=== PATIENT | female | born 1945 | race Caucasian/White ===

== ENCOUNTER 2017-09-16 19:25 | Observation (INO) | payer MEDICARE, OTHER ==
[2017-09-16] MEDS ORDERED: Ticagrelor 90 MG Tab PO ONE (19:29)
[2017-09-16] MEDS ORDERED: Famotidine 20 MG/2 ML SDV IVPUSH ONE (19:29)
[2017-09-16] MEDS ORDERED: Aspirin 81 MG Tab.Chew CHEW ONE (19:29)
[2017-09-16] MEDS ORDERED: Sodium Chloride 0.9% 10 ML Syringe FLUSH PRN ×2 (19:29→23:32)
--- NOTE | 2017-09-16 19:29 | EDM.PDOC ---
ED HPI GENERAL MEDICAL PROBLEM - General Chief Complaint: Cardiovascular Problem Stated Complaint: BOUNDING HR Time Seen by Provider: 09/16/17 19:28 Source of Information: Reports: Patient, Old Records ([facility] chart/EMR) History Limitations: Reports: No Limitations - History of Present Illness INITIAL COMMENTS - FREE TEXT/NARRATIVE: The patient was brought to the emergency room via private automobile by her for evaluation of a nonspecific "pounding" heart starting at supper at home at about 18:30 hours this evening. She has some nonspecific retrosternal burning with possible mild dyspnea, however denies dysphagia, aspiration, etc. Patient did not take any medications to this point for those symptoms. She does have a known history of significant heart disease as below with last pacemaker check in July. The patient denies any chest pain/pressure, heart flutter, dizziness, orthostasis, orthopnea, diaphoresis, paresthesias, recent decreased exercise tolerance, or any other anginal-type symptoms. No recent history of abdominal pain, heartburn, nausea, diarrhea, melena, gross hematochezia, or any food intolerance, including fatty foods, etc.. The patient also denies any recent fever, cough, wheezing, dyspnea, etc.. Onset: Today, Sudden Onset Date: 09/07/17 Onset Time: 18:30 Duration: Intermittent Location: Reports: Chest. Denies: Head, Face, Neck, Abdomen, Back, Pelvis, Upper Extremity, Left, Upper Extremity, Right, Radiates to Quality: Reports: Same as Previous Episode Severity: Mild Improves with: Reports: None Worsens with: Reports: None Context: Reports: Other (As above) Associated Symptoms: Reports: Chest Pain, Shortness of Breath. 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) (None) - Related Data Allergies Allergy/AdvReac Type Severity Reaction Status Date / Time amoxicillin trihydrate Allergy Unknown Cannot Verified 09/16/17 22:13 [From Augmentin] Remember bupropion HCl Allergy Unknown Cannot Verified 09/16/17 22:13 [From Wellbutrin] Remember cetirizine HCl [From Zyrtec] Allergy Unknown Cannot Verified 09/16/17 22:13 Remember darifenacin hydrobromide Allergy Unknown Cannot Verified 02/27/18 22:13 [From Enablex] Remember fluticasone propionate Allergy Unknown Cannot Verified 09/16/17 22:13 [From Flonase] Remember lovastatin Allergy Unknown Diarrhea Verified 09/16/17 22:13 metoprolol tartrate Allergy Unknown Diarrhea Verified 09/16/17 22:13 [From Lopressor] paroxetine HCl [From Paxil] Allergy Unknown Cannot Verified 09/16/17 22:13 Remember potassium clavulanate Allergy Unknown Cannot Verified 09/16/17 22:13 [From Augmentin] Remember sertraline HCl [From Zoloft] Allergy Cannot Verified 09/16/17 22:13 Remember simvastatin [From Zocor] Allergy Cannot Verified 09/16/17 22:13 Remember Sulfa (Sulfonamide Allergy Itching Verified 09/16/17 22:13 Antibiotics) venlafaxine HCl Allergy Anxiety Verified 09/16/17 22:13 [From Effexor] verapamil HCl [From Verelan] Allergy Cannot Verified 09/16/17 22:13 Remember arginine Allergy Cannot Uncoded 09/16/17 22:13 Remember Home Meds: Home Meds ALPRAZolam [Xanax] 2 mg PO BEDTIME PRN 03/11/14 [History] Azelastine HCl 2 spray NASBOTH BID PRN 03/11/14 [History] Calcium Carb & Citrate/Vit D3 [Citracal + D ER] 1 tab PO BEDTIME 03/11/14 [ History] Citalopram [Citalopram HBr] 20 mg PO DAILY 03/11/14 [History] Ferrous Sulfate 325 mg PO DAILY 03/11/14 [History] Lutein/Minerals/Vit A,C & E [Ocuvite] 1 tab PO DAILY 03/11/14 [History] Multivitamin [Daily Multiple Vitamin] 1 tab PO DAILY 03/11/14 [History] Omeprazole 20 mg PO DAILY 03/11/14 [History] Rosuvastatin [Crestor] 20 mg PO BEDTIME 03/11/14 [History] Ubidecarenone [Co Q-10] 100 mg PO BID 03/11/14 [History] traMADol Hcl/Acetaminophen [Ultracet Tablet] 1 tab PO DAILY PRN 03/11/14 [ History] Cyanocobalamin (Vitamin B12) [Vitamin B12] 1,000 mcg IJ Q30D 04/19/14 [History] Ketotifen Fumarate [Zaditor] 1 drop EYEBOTH BID PRN 04/19/14 [History] Aspirin [Halfprin] 81 mg PO BEDTIME 09/16/17 [History] Carvedilol 3.125 mg PO BID 09/16/17 [History] cycloSPORINE [Restasis] 1 drop EYEBOTH BID 09/16/17 [History] Past Medical History HEENT History: Reports: Allergic Rhinitis, Hard of Hearing, Impaired Vision, Macular Degeneration, Other (See Below). Denies: Cataract, Glaucoma, Retinal Detachment Other HEENT History: She wears glasses. 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 Dry eye syndrome Cardiovascular History: Reports: Afib, Arrhythmia, Automatic Implantable Cardioverter Defibrillators, Bypass, CAD, Cardiomyopathy, Heart Failure, Heart Murmur, High Cholesterol, Hypertension, [place], Pacemaker, PTCA, Stents, Other (See Below). Denies: Aneurysm, Blood Clots/VTE/DVT, PVD, Syncope Other Cardiovascular History: PVCs, borderline incomplete bifascicular bundle branch block, PACs, first-degree AV block, and history of atrial fibrillation. Ischemic cardiomyopathy and large anterior wall acute KY on 06/24/91 with this post PTCA/stent and CABG as below. Mild left atrial enlargement and aortic valve insufficiency by echocardiogram as below Respiratory History: Reports: Asthma, COPD, Intubation, Previous, Sleep Apnea, Other (See Below). Denies: Bronchitis, Recurrent, Intubation, Difficult, PE, Pneumothorax, Pulmonary Fibrosis, TB Other Respiratory History: History of sleep apnea with patient not able to tolerate CPAP Gastrointestinal History: Reports: Diverticulosis, Fecal Incontinence, Gastritis , GERD, GI Bleed, Hiatal Hernia, PUD, Other (See Below). Denies: Bowel Obstruction, Celiac Disease, Cholelithiasis, Chronic Constipation, Chronic Diarrhea, Colon Polyp, Hepatitis, Inflammatory Bowel Disease, Irritable Bowel Syndrome, Jaundice, Pancreatitis Other Gastrointestinal History: Moderately large hiatal hernia by CT scan. Possible upper GI bleed Genitourinary History: Reports: Chronic Renal Insuffiency, Urinary Incontinence , Other (See Below). Denies: Acute Renal Failure, Dialysis, Renal Calculus, STD , UTI, Recurrent Other Genitourinary History: History of both stress and urinary urge incontinence. 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 Denies: Endometriosis : 4 Para: 3 ( with first otherwise with no other problems during pregnancies or deliveries) LMP (Approximate): Menopausal Other OB/BYN History: Menopause in her early 50s. Benign ovarian cysts and vaginal polyps Musculoskeletal History: Reports: Arthritis, Back Pain, Chronic, Fracture, Gout , Neck Pain, Chronic, Osteoarthritis, Osteoporosis, Other (See Below). Denies: Amputation, Fibromyalgia, RA, SLE Other Musculoskeletal History: Neck fracture and 2 vertebral fracture in T5 and T11 secondary to severe horse injury on 03/27/13. Left thumb fracture at age 17. Additional T1 and T2 fractures in the past. Hyperuricemia without history of gout attacks Neurological History: Reports: Concussion, Headaches, Chronic, Head Trauma, Migraines, Neuropathy, Peripheral, Other (See Below). Denies: Alzheimers Disease, Cerebral Aneurysms, CVA, MS, Neuropathy, Diabetic, Parkinson's, Seizure , TIA Other Neuro History: History of head concussion secondary to force injury as above in 2012 Psychiatric History: Reports: Anxiety, Depression. Denies: Abuse, Victim of, ADD, ADHD, Addiction, Psych Hospitalization(s), PTSD, Suicide Attempt, Suicidal Ideation Endocrine/Metabolic History: Reports: Other (See Below). 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 Additional blood transfusion on 08/03/12 secondary to symptomatic anemia. 3 units in 1995 secondary to tubal Immunologic History: Denies: AIDS, HIV, SLE Oncologic (Cancer) History: Reports: None. Denies: Basal Cell Carcinoma, Breast , Cervix, Colon, Leukemia, Lymphoma, Malignant Melanoma, Non-Hodgkin's Lymphoma , Ovarian, Squamous Cell Carcinoma, Uterine Dermatologic History: Reports: None. Denies: Eczema, Psoriasis - Infectious Disease History Infectious Disease History: Reports: Chicken Pox, Measles, Mumps, Pertussis ( Whooping Cough). Denies: C-Difficile, Meningitis, Mononucleosis, MRSA, Rheumatic Fever, Rubella, Scarlet Fever, Shingles, TB, VRE - Past Surgical History Head Surgeries/Procedures: Reports: None HEENT Surgical History: Reports: LASIK, Naso-Sinus Surgery, Oral Surgery, Other (See Below). Denies: Adenoidectomy, Cataract Surgery, Eye Surgery, Laser Surgery, Myringotomy w Tube(s), Tonsillectomy Other HEENT Surgeries/Procedures: Multiple teeth extractions. Septoplasty with bilateral middle and inferior turbinate trimming on 09/18/01. LASIK Cardiovascular Surgical History: Reports: AICD, Coronary Artery Bypass, Coronary Artery Stent, Pacer, Percutaneous Transluminal Angioplasty, Other (See Below). Denies: Aneurysm Other Cardiovascular Surgeries/Procedures: PTCA/stent on 06/24/91. CABG 1 of the LAD on 03/29/14. AICDpacemaker placement in 2009 Respiratory Surgical History: Reports: None. Denies: Lung Biopsies, Thoracentesis GI Surgical History: Reports: Colonoscopy, EGD, Other (See Below). Denies: Appendectomy, Cholecystectomy, Hernia, Abdominal, Hernia, Inguinal, Hernia Repair/Other, Polypectomy Other GI Surgeries/Procedures: Last EGD and colonoscopy in 2013 with previous EGD and colonoscopy on 11/14/05 Female Surgical History: Reports: Section, D&C, Salpingo- Oophorectomy, Other (See Below). Denies: Breast Biopsy, Hysterectomy, Tubal Ligation Other Female Surgeries/Procedures: on 12/14/69. Left sided salpingo- oophorectomy secondary to tubal in March 1966. D&Cs 2 secondary to dysfunctional uterine bleeding Endocrine Surgical History: Reports: None. Denies: Thyroid Biopsy Neurological Surgical History: Reports: None. Denies: C-Spine, Discectomy, Laminectomy, Lumbar Spine, Sacral Spine, Spinal Fusion Musculoskeletal Surgical History: Denies: Amputation, Arthroscopic Knee, Arthroscopic Procedure, Carpal Tunnel, Ganglion Cyst, Joint Replacement, ORIF, Shoulder Surgery Oncologic Surgical History: Reports: None Dermatological Surgical History: Reports: None - Past Imaging History Past Imaging History: Reports: Angiography (Heart Catheterization in March), Cardiac Echo (Last echocardiogram on 11/26/16 with ejection fraction of 35-40% with otherwise findings as above with similar findings on previous echocardiogram on 03/25/14), Carotid US (Last on 09/27/14 previous evaluation on ), CAT Scan (CTA of the chest on 03/12/14. CT of the chest on 03/27/13. CT of the lumbar spine on 06/25/10), DEXA Scan (12/11/12), Mammogram (Last mammogram in 2017), Stress Testing (Positive Dobutamine Cardiolite stress test on 03/17/14 with ejection fraction of 32% and subsequent CABG as above. Level cardiac stress test on 05/03/14), Ultrasound (Renal ultrasound on 06/27/10) Social & Family History - Family History HEENT: Reports: Macular Degeneration, Other (See Below). Denies: Glaucoma, Retinal Detachment Other HEENT Family History: Mother with macular degeneration Cardiac: Reports: Bypass, CAD, Cardiomyopathy, Heart Failure, High Cholesterol, Hypertension, [place], Stent, Other (See Below). Denies: Afib, Aneurysm, Arrhythmia , Blood Clots/VTE/DVT, PVD/COD, Syncope Other Cardiac Family History: Mother with history of CHF and pacemaker at age 86 with fatal CHF and kidney failure at age 88. Mother with KY at age 58 with father having an KY in his 60s with three-vessel CABG. 2 maternal aunts with fatal MIs in their 60s. 2 paternal uncles with fatal MIs with brother having an KY in his 30s. Brother with PTCA in his 50s. Cousin with fatal KY at age 48. Maternal uncle with fatal KY at age 73. Brother with KY and three-vessel CABG at age 48. Hyperlipidemia in parents. Hypertension in mother and brother Respiratory: Reports: None. Denies: Asthma, COPD, PE, Pneumothorax, Sleep Apnea GI: Reports: Cholelithiasis, PUD, Other (See Below). Denies: Celiac Disease, Colon Polyps, GERD, GI bleed, Hepatitis, Inflammatory Bowel Disease, Irritable Bowel Syndrome, Pancreatitis Other GI Family History: Mother and paternal uncle with cholelithiasis. Paternal uncle with peptic ulcer disease with history of abdominal gunshot injury : Reports: Dialysis, Renal Disease/Insufficiency, Other (See Below). Denies: Renal Calculus Other Family History: Father with fatal CHF and/or kidney failure at age 88 as above. Paternal uncle required dialysis OBGYN: Reports: None. Denies: Endometriosis, Recurrent Spontaneous Musculoskeletal: Reports: None. Denies: Gout, RA, SLE Neurological: Reports: CVA, TIA, Other (See Below). Denies: Alzheimers Disease , Cerebral Aneurysms, Dementia, MS, Parkinson's, Seizure Other Neurological Family History: Mother with CVA at age 79 and additional history of multiple TIAs Psychiatric: Reports: Anxiety, Depression, Psych Hospitalization(s), PTSD, Other (See Below). Denies: Abuse, Victim of, ADD, ADHD, Suicide Attempt Other Psychiatric Family History: Father with anxiety depression disorder and paranoid schizophrenia which did require psychiatric hospitalization. Brother with history of PTSD secondary to service. Endocrine/Metabolic: Reports: Diabetes, type II, Hypothyroidism, Other (See Below). Denies: Diabetes, Type I, Diabetes Mellitus, Type 3c, IDDM Other Endocrine/Metabolic Family History: Paternal aunt with fatal diabetes mellitus in her 60s. 2 maternal uncles, paternal grandmother, and paternal uncle with AODM. Hypothyroidism in sister and mother. Hematologic: Reports: None. Denies: Anemia, Transfusion Reaction Immunologic: Reports: None. Denies: AIDS, HIV, SLE Dermatologic: Reports: None. Denies: Eczema, Psoriasis Oncologic: Reports: Colon, Prostate, Other (See Below). Denies: Breast, Hodgkin 's Lymphoma, Leukemia, Lymphoma, Metastatic, Non-Hodgkin's Lymphoma, Ovarian, Skin, Uterine Other Oncologic Family History: Maternal aunt with fatal colon cancer at age 79. Father with leukemia. Brother with prostate cancer - Tobacco Use Smoking Status *Q: Former Smoker Tobacco Use Within Last Twelve Months: No Years of Tobacco use: 29 Packs/Tins Daily: 2 (smoking use of tobacco use since 1990 with maximum use of 2 1/2 packs per day) Used Tobacco, but Quit: Yes Smoking Cessation Information Provided To Patient: No Second Hand Smoke Exposure: No Second Hand Smoke Education Provided: No - Caffeine Use Caffeine Use: Reports: Coffee (2 Cups per day), Soda (1 soda per month). Denies : Energy Drinks, Tea - Alcohol Use Alcohol Use History: Yes Days Per Week of Alcohol Use: 3 (No previous DWIs, problems with alcohol abuse, etc.) Number of Drinks Per Day: 1 (Usually beer or wine) Total Drinks Per Week: 3 Alcohol Use in Last Twelve Months: Yes Alcohol Use Frequency: Socially - Recreational Drug Use Recreational Drug Use: No Drug Use in Last 12 Months: No Recreational Drug Type: Denies: Amphetamines (Speed), Cocaine, Heroin, Inhalants (Glues, Solvents, Aerosols), LSD (Acid), Marijuana/Hashish, Methamphetamine, Morphine, Oxycodone - Living Situation & Occupation Living situation: Reports: (1965) 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 ED EXAM, GENERAL - Physical Exam Exam: See Below Exam Limited By: No Limitations General Appearance: Alert, WD/WN, No Apparent Distress, Anxious (Mild) Eye Exam: Bilateral Eye: EOMI, Normal Inspection (No nystagmus. Patient wearing glasses), PERRL Ears: Normal External Exam, Normal Canal, Normal TMs, Hearing Loss (Presbycusis borderline) Nose: Normal Inspection, Normal Mucosa, No Blood Throat/Mouth: Normal Inspection, Normal Lips, Normal Teeth (Multiple missing teeth), Normal Gums, Normal Oropharynx, Normal Voice, No Airway Compromise. No : Dysphagia, Perioral Cyanosis Head: Atraumatic, Normocephalic. No: Facial Swelling, Facial Tenderness, Sinus Tenderness Neck: Supple, Non-Tender, Full Range of Motion, Carotid Bruit (Bilateral carotid bruits). No: Lymphadenopathy (L), Lymphadenopathy (R), Thyromegaly Respiratory/Chest: No Respiratory Distress, Lungs Clear, Normal Breath Sounds, No Accessory Muscle Use, Chest Non-Tender. No: Pleural Rub, Retractions Cardiovascular: Normal Peripheral Pulses, Regular Rate, Rhythm, No Edema, No Gallop, No JVD, No Murmur, No Rub. No: Gallop/S3, Gallop/S4, Friction Rub Peripheral Pulses: 2+: Radial (L), Radial (R), Dorsalis Pedis (L), Dorsalis Pedis (R) GI/Abdominal: Normal Bowel Sounds, Soft, Non-Tender, No Organomegaly, No Distention, No Abnormal Bruit, No Mass, Pelvis Stable. No: Guarding (Female) Exam: Deferred Rectal (Female) Exam: Deferred Back Exam: Normal Inspection, Full Range of Motion. No: CVA Tenderness (L), CVA Tenderness (R), Muscle Spasm Extremities: Normal Inspection, Normal Range of Motion, Non-Tender, No Pedal Edema, Normal Capillary Refill. No: Hero's Sign Neurological: Alert, Oriented, CN II-XII Intact, Normal Cognition, Normal Gait, Normal Reflexes (Negative Babinski's), No Motor/Sensory Deficits Psychiatric: Anxious (Mild). No: Depressed Mood Skin Exam: Warm, Dry, Intact, Normal Color, No Rash. No: Diaphoretic, Ecchymosis, Petechiae, Wound/Incision EKG INTERPRETATION EKG Date: 09/16/17 Time: 19:45 Rhythm: NSR Rate (Beats/Min): 62 [place]: Normal (Left cardiac axis) P-Wave: Present (Mild Diffuse biphasic P waves with extreme poor R-wave progression in the anterior leads) QRS: Other (QRS interval of 0.12 seconds representing a complete bifascicular bundle-branch block) ST-T: Other (Stable T-wave inversion in leads V1 and V2) QT: Normal MA/PQ Interval: 0.20 seconds representing a borderline first-degree AV block Comparison: No Change (03/17/14) EKG Interpretation Comments: 1. Stable anterior wall cardiac ischemia 2. Borderline First-degree AV block 3. Complete bifascicular bundle-branch block Course - Vital Signs Last Recorded V/S: Last Vital Signs Temp 36.8 C 09/17/17 12:00 Pulse 47 L 09/17/17 12:00 Resp 18 09/17/17 12:00 BP 98/48 L 09/17/17 12:00 Pulse Ox 97 09/17/17 12:00 - Orders/Labs/Meds Labs: Laboratory Tests 09/16/17 09/16/17 09/16/17 Range/Units 19:50 19:58 19:58 WBC 6.5 (4.0-10.2) K/uL RBC 4.01 (3.77-5.09) M/uL Hgb 12.4 D (11.7-15.5) g/dL Hct 38.1 (34.0-46.0) % MCV 95.0 D (84.0-98.0) fL MCH 30.9 (28.2-33.3) pg MCHC 32.5 (31.7-36.0) g/dL RDW 14.8 H (11.2-14.1) % Plt Count 222 (150-350) K/uL Neut % (Auto) 59.5 (45.0-80.0) % Lymph % (Auto) 25.6 (10.0-50.0) % Bates % (Auto) 10.3 (2.0-14.0) % Eos % (Auto) 4.3 (0.0-5.0) % Baso % (Auto) 0.3 (0.0-2.0) % Neut # (Auto) 3.86 (1.40-7.00) K/uL Lymph # (Auto) 1.66 (0.50-3.50) K/uL Bates # (Auto) 0.67 (0.00-1.00) K/uL Eos # (Auto) 0.28 (0.00-0.50) K/uL Baso # (Auto) 0.02 (0.00-0.20) K/uL PT 10.2 (9.8-11.7) SEC INR 1.0 APTT 26.4 (22.1-29.8) SEC D-Dimer, Quantitative (0-400) ng/mL Sodium (136-145) mmol/L Potassium (3.5-5.1) mmol/L Chloride (98-107) mmol/L Carbon Dioxide (21.0-32.0) mmol/L BUN (7-18) mg/dL Creatinine (0.51-1.17) mg/dL Est Cr Clr Drug Dosing mL/min Estimated GFR (MDRD) mL/min Glucose (74-106) mg/dL Lactic Acid 2.6 H (0.4-2.0) mmol/L Uric Acid (2.6-7.2) mg/dL Calcium (8.5-10.1) mg/dL Magnesium (1.8-2.4) mg/dL Total Bilirubin (0.2-1.0) mg/dL AST (15-37) U/L ALT (12-78) U/L Alkaline Phosphatase (46-116) IU/L Creatine Kinase (26-308) U/L Creatine Kinase Index (0.0-2.5) % CK-MB (CK-2) (0.00-3.60) ng/mL Troponin I (0.000-0.056) ng/mL NT-Pro-B Natriuret Pep (0-125) pg/mL Total Protein (6.4-8.2) g/dL Albumin (3.4-5.0) g/dL TSH, Ultra Sensitive (0.358-3.740) mIU/mL 09/16/17 09/16/17 Range/Units 19:58 19:58 WBC (4.0-10.2) K/uL RBC (3.77-5.09) M/uL Hgb (11.7-15.5) g/dL Hct (34.0-46.0) % MCV (84.0-98.0) fL MCH (28.2-33.3) pg MCHC (31.7-36.0) g/dL RDW (11.2-14.1) % Plt Count (150-350) K/uL Neut % (Auto) (45.0-80.0) % Lymph % (Auto) (10.0-50.0) % Bates % (Auto) (2.0-14.0) % Eos % (Auto) (0.0-5.0) % Baso % (Auto) (0.0-2.0) % Neut # (Auto) (1.40-7.00) K/uL Lymph # (Auto) (0.50-3.50) K/uL Bates # (Auto) (0.00-1.00) K/uL Eos # (Auto) (0.00-0.50) K/uL Baso # (Auto) (0.00-0.20) K/uL PT (9.8-11.7) SEC INR APTT (22.1-29.8) SEC D-Dimer, Quantitative 250 (0-400) ng/mL Sodium 141 (136-145) mmol/L Potassium 3.8 (3.5-5.1) mmol/L Chloride 105 (98-107) mmol/L Carbon Dioxide 25.6 (21.0-32.0) mmol/L BUN 17 (7-18) mg/dL Creatinine 0.92 (0.51-1.17) mg/dL Est Cr Clr Drug Dosing 42.32 mL/min Estimated GFR (MDRD) > 60 mL/min Glucose 133 H (74-106) mg/dL Lactic Acid (0.4-2.0) mmol/L Uric Acid 5.8 (2.6-7.2) mg/dL Calcium 8.8 (8.5-10.1) mg/dL Magnesium 1.9 (1.8-2.4) mg/dL Total Bilirubin 0.5 (0.2-1.0) mg/dL AST 18 (15-37) U/L ALT 18 (12-78) U/L Alkaline Phosphatase 58 (46-116) IU/L Creatine Kinase 87 (26-308) U/L Creatine Kinase Index 1.6 (0.0-2.5) % CK-MB (CK-2) 1.40 (0.00-3.60) ng/mL Troponin I 0.003 (0.000-0.056) ng/mL NT-Pro-B Natriuret Pep 498 H (0-125) pg/mL Total Protein 7.4 (6.4-8.2) g/dL Albumin 3.5 (3.4-5.0) g/dL TSH, Ultra Sensitive 3.400 (0.358-3.740) mIU/mL Meds: Medications Discontinued Medications Generic Name Dose Route Start Last Admin Trade Name Freq PRN Reason Stop Dose Admin Acetaminophen 650 mg 09/16/17 23:32 Tylenol PO Q4H PRN Pain Alprazolam 2 mg 09/16/17 23:30 09/16/17 23:56 Xanax PO 2 mg BEDTIME PRN Administration Anxiety Aspirin 324 mg 09/16/17 19:29 09/16/17 19:54 Aspirin CHEW 09/16/17 19:30 324 mg ONETIME ONE Administration Aspirin 81 mg 09/17/17 20:00 Halfprin PO BEDTIME [facility] Carvedilol 3.125 mg 09/17/17 08:00 09/17/17 08:40 Coreg PO 3.125 mg BID RONALD Administration Citalopram Hydrobromide 20 mg 09/17/17 08:00 09/17/17 08:40 Celexa PO 20 mg DAILY [facility] Administration Coenzyme Q10 100 mg 09/17/17 08:00 09/17/17 08:39 Coenzyme Q10 PO 100 mg BID RONALD Administration Enoxaparin Sodium 40 mg 09/16/17 23:45 09/16/17 23:57 Lovenox SUBCUT 40 mg Q24H RONALD Administration Famotidine 40 mg 09/16/17 19:29 09/16/17 19:54 Pepcid IVPUSH 09/16/17 19:30 40 mg ONETIME ONE Administration Ferrous Sulfate 325 mg 09/17/17 08:00 09/17/17 08:39 Ferrous Sulfate PO 325 mg DAILY RONALD Administration Ketotifen Fumarate 0 ml 09/16/17 23:30 Ketotifen 0.025% Ophth Soln EYEBOTH BID PRN Dry Eyes Non-Formulary Medication 2 spray 09/16/17 23:30 Azelastine Hcl [Azelastine Hcl] NASBOTH BID PRN Dry Eyes Cyclosporine [ 1 drop 09/17/17 08:00 09/17/17 08:39 Restasis] 0.05% EYEBOTH 1 drop Ophth EmulsionOwn BID RONALD Administration Med Rosuvastatin Calcium 20 mg 09/17/17 20:00 Crestor PO BEDTIME RONALD Rosuvastatin Calcium 20 mg 09/16/17 23:39 09/16/17 23:57 Crestor PO 20 mg BEDTIME RONALD Administration Sodium Chloride 10 ml 09/16/17 19:29 09/16/17 19:54 Saline Flush FLUSH 10 ml ASDIRECTED PRN Administration Keep Vein Open Sodium Chloride 10 ml 09/16/17 23:32 Saline Flush FLUSH Q12HR PRN Keep Vein Open Ticagrelor 180 mg 09/16/17 19:29 09/16/17 19:54 Brilinta PO 09/16/17 19:30 180 mg ONETIME ONE Administration - Radiology Interpretation Free Text/Narrative:: manager monitoring shows normal sinus rhythm in the 60s to 70s with occasional bradycardia in the 50s with recurrent episodes of moderate bradycardia with lowest heart rate of 45 and initiation of pacemaker when her heart rate is in the 40s. Occasional PVCs noted. Chest x-ray, portable, shows status post median sternotomy with pacemaker and leads in appropriate position. Prominence of the proximal aortic arch. Moderate COPD changes with no evidence of significant pulmonary infiltrates, pneumothorax , etc. Mild to moderate cardiomegaly with no CHF. Departure - Departure Time of Disposition: 23:00 Disposition: Refer to Observation Reason for Transfer *Q: Other (Not indicated) Condition: Good Clinical Impression: COPD, Moderate chronic obstructive pulmonary disease, Coronary artery disease, Hypertension, Hyperlipidemia, Osteoarthritis, Peptic reflux disease, Elevated lactic acid level, CHF (congestive heart failure) - Problem List & Annotations (1) Coronary artery disease SNOMED Code(s): 64047121 Code(s): I25.10 - ATHSCL HEART DISEASE OF [place] CORONARY ARTERY W/O ANG PCTRS Status: Acute Priority: High Annotation/Comment:: Atypical anginal complaints vs GI/stricture. Serial labs unremarkable. Did complain of pounding heart/fast heart rate sensation once last night. Qualifiers: Coronary Disease-Associated Artery/Lesion type: bypass graft [place] vs. transplanted heart: [place] heart Associated angina: with stable angina Qualified Code(s): I25.708 - Atherosclerosis of coronary artery bypass graft(s) , unspecified, with other forms of angina pectoris (2) CHF (congestive heart failure) SNOMED Code(s): 72603208 Code(s): I50.9 - HEART FAILURE, UNSPECIFIED Status: Acute Priority: High Annotation/Comment:: Mild BNP elevation but no clinical evidence of significant CHF at this time. Cardiology consultation as above with consideration of repeat echocardiogram. Delay in initiation of Lasix therapy for now with possible CHF secondary to her intermittent bradycardia. Her previous lisinopril has been discontinued by her providers. Recommend increased pacemaker rate as above. Qualifiers: Heart failure type: systolic Heart failure chronicity: acute on chronic Qualified Code(s): I50.23 - Acute on chronic systolic (congestive) heart failure (3) COPD, Moderate chronic obstructive pulmonary disease SNOMED Code(s): 586589340 Code(s): J44.9 - CHRONIC OBSTRUCTIVE PULMONARY DISEASE, UNSPECIFIED Status : Chronic Priority: Medium Annotation/Comment:: Stable by history with no recent fever or bronchitic type symptoms (4) Hyperlipidemia SNOMED Code(s): 27899558 Code(s): E78.5 - HYPERLIPIDEMIA, UNSPECIFIED Status: Chronic Priority: Medium Annotation/Comment:: Currently on statin therapy. Lipid panel and glycosylated hemoglobin in the a.m. Qualifiers: Hyperlipidemia type: unspecified Qualified Code(s): E78.5 - Hyperlipidemia , unspecified (5) Hypertension SNOMED Code(s): 97692145 Code(s): I10 - ESSENTIAL (PRIMARY) HYPERTENSION Status: Chronic Priority : Medium Annotation/Comment:: Blood Pressures stable in the emergency room Qualifiers: Hypertension type: essential hypertension Qualified Code(s): I10 - Essential (primary) hypertension (6) Osteoarthritis SNOMED Code(s): 591868278 Code(s): M19.90 - UNSPECIFIED OSTEOARTHRITIS, UNSPECIFIED SITE Status: Chronic Priority: Medium Annotation/Comment:: Stable by patient history with history of hyperuricemia but no previous gout attacks Qualifiers: Osteoarthritis location: multiple joints Osteoarthritis type: primary Qualified Code(s): M15.0 - Primary generalized (osteo)arthritis (7) Peptic reflux disease SNOMED Code(s): 12284972 Code(s): K21.9 - GASTRO-ESOPHAGEAL REFLUX DISEASE WITHOUT ESOPHAGITIS Status: Chronic Priority: Medium Annotation/Comment:: Stable by history with high-dose IV Pepcid given in the emergency room (8) Elevated lactic acid level SNOMED Code(s): 7699786 Code(s): R79.89 - OTHER SPECIFIED ABNORMAL FINDINGS OF BLOOD CHEMISTRY Status: Acute Priority: Medium Onset Date: 09/16/17 Annotation/Comment:: Normal level this morning. - Problem List Review Problem List Initiated/Reviewed/Updated: Yes - Assessment/Plan Admission H&P: Please use this note as an admission H&P Assessment:: As above Plan: As above. Extensive precautions were given to the patient and her , who are in agreement with the treatment plan. The patient's condition is stable enough for observation status and general supervision. Brenda walters physician assumes care in the a.m.
[2017-09-16 20:29] LABS: CHLORIDE,CL 105 mmol/L (98-107); SODIUM,NA 141 mmol/L (136-145)
[2017-09-16] MEDS ORDERED: Ketotifen 0.025% Ophth Soln 5 ML Bottle EYEBOTH PRN (23:30)
[2017-09-16] MEDS ORDERED: ALPRAZolam 1 MG Tab PO PRN (23:30)
[2017-09-16] MEDS ORDERED: Non-Formulary Medication 1 Each (Azelastine Hcl [Azelastine Hcl] 2 SPRAY) NASBOTH PRN (23:30)
[2017-09-16] MEDS ORDERED: Acetaminophen 325 MG Tab PO PRN (23:32)
[2017-09-16] MEDS ORDERED: Rosuvastatin 10 MG Tab PO SCH (23:39)
[2017-09-16] MEDS ORDERED: Enoxaparin 40 MG/0.4 ML Syringe SUBCUT SCH (23:45)
[2017-09-17] MEDS ORDERED: Carvedilol 6.25 MG Tab PO SCH (08:00)
[2017-09-17] MEDS ORDERED: CYCLOSPORINE 0.05% EYEBOTH SCH (08:00)
[2017-09-17] MEDS ORDERED: Ferrous Sulfate 325 MG Tab PO SCH (08:00)
[2017-09-17] MEDS ORDERED: Citalopram 20 MG Tab PO SCH (08:00)
[2017-09-17 08:20] LABS: CHLORIDE,CL 106 mmol/L (98-107); SODIUM,NA 143 mmol/L (136-145)
[2017-09-17 12:18] VITALS: BP 98/48
--- NOTE | 2017-09-17 12:18 | PCM.DCSUM1 ---
Discharge Summary - Hospital Course Free Text/Narrative:: Patient admitted overnight for telemetry and serial troponins after presenting to ER last night due to epigastric discomfort. - Discharge Data Discharge Date: 09/17/17 Discharge Disposition: DC/Tfer to Acute Hospital 02 Condition: Good - Discharge Diagnosis/Problem(s) (1) Bradycardia SNOMED Code(s): 00517585 ICD Code: R00.1 - BRADYCARDIA, UNSPECIFIED Status: Acute Priority: High Current Visit: Yes Problem Details: Patient noted to have bradycardia. Does have demand pacemaker that is noted to fire only once patient is in the 40s. Uncertain is this is the set rate or if pacemaker is misbehaving. Patient complains of chronic fatigue. Subjective SOB last night improved with O2. Also noted to be hypotensive with readings in 90s/40s at times. Patient will be transferred to [facility] for further evaluation by hospitalist and Cardiology. (2) Dysphagia SNOMED Code(s): 22684289 ICD Code: R13.10 - DYSPHAGIA, UNSPECIFIED Status: Acute Priority: Medium Current Visit: Yes Problem Details: Patient complains of sensation of food getting stuck in lower esophagus. Unable to swallow water last evening when this happened. No history of stricture in past per patient but does have PUD/ GERD. Qualifiers: Dysphagia type: esophageal phase Qualified Code(s): R13.10 - Dysphagia, unspecified (3) COPD, Moderate chronic obstructive pulmonary disease SNOMED Code(s): 102779739 ICD Code: J44.9 - CHRONIC OBSTRUCTIVE PULMONARY DISEASE, UNSPECIFIED Status : Chronic Priority: Medium Current Visit: Yes Problem Details: Stable by history with no recent fever or bronchitic type symptoms (4) Hypertension SNOMED Code(s): 53434671 ICD Code: I10 - ESSENTIAL (PRIMARY) HYPERTENSION Status: Chronic Priority : Medium Current Visit: Yes Problem Details: Blood Pressures stable in the emergency room Qualifiers: Hypertension type: essential hypertension Qualified Code(s): I10 - Essential (primary) hypertension (5) Coronary artery disease SNOMED Code(s): 60237976 ICD Code: I25.10 - ATHSCL HEART DISEASE OF [place] CORONARY ARTERY W/O ANG PCTRS Status: Acute Priority: High Current Visit: Yes Problem Details: Atypical anginal complaints vs GI/stricture. Serial labs unremarkable. Did complain of pounding heart/fast heart rate sensation once last night. Qualifiers: Coronary Disease-Associated Artery/Lesion type: bypass graft [place] vs. transplanted heart: [place] heart Associated angina: with stable angina Qualified Code(s): I25.708 - Atherosclerosis of coronary artery bypass graft(s) , unspecified, with other forms of angina pectoris (6) Hyperlipidemia SNOMED Code(s): 60453845 ICD Code: E78.5 - HYPERLIPIDEMIA, UNSPECIFIED Status: Chronic Priority: Medium Current Visit: Yes Problem Details: Currently on statin therapy. Lipid panel and glycosylated hemoglobin in the a.m. Qualifiers: Hyperlipidemia type: unspecified Qualified Code(s): E78.5 - Hyperlipidemia , unspecified (7) Osteoarthritis SNOMED Code(s): 472418720 ICD Code: M19.90 - UNSPECIFIED OSTEOARTHRITIS, UNSPECIFIED SITE Status: Chronic Priority: Medium Current Visit: Yes Problem Details: Stable by patient history with history of hyperuricemia but no previous gout attacks Qualifiers: Osteoarthritis location: multiple joints Osteoarthritis type: primary Qualified Code(s): M15.0 - Primary generalized (osteo)arthritis (8) Peptic reflux disease SNOMED Code(s): 86753478 ICD Code: K21.9 - GASTRO-ESOPHAGEAL REFLUX DISEASE WITHOUT ESOPHAGITIS Status: Chronic Priority: Medium Current Visit: Yes Problem Details: Stable by history with high-dose IV Pepcid given in the emergency room (9) Elevated lactic acid level SNOMED Code(s): 8865165 ICD Code: R79.89 - OTHER SPECIFIED ABNORMAL FINDINGS OF BLOOD CHEMISTRY Status: Acute Priority: Medium Current Visit: Yes Onset Date: 09/16/17 Problem Details: Normal level this morning. (10) CHF (congestive heart failure) SNOMED Code(s): 94105377 ICD Code: I50.9 - HEART FAILURE, UNSPECIFIED Status: Acute Priority: High Current Visit: Yes Problem Details: Mild BNP elevation but no clinical evidence of significant CHF at this time. Cardiology consultation as above with consideration of repeat echocardiogram. Delay in initiation of Lasix therapy for now with possible CHF secondary to her intermittent bradycardia. Her previous lisinopril has been discontinued by her providers. Recommend increased pacemaker rate as above. Qualifiers: Heart failure type: systolic Heart failure chronicity: acute on chronic Qualified Code(s): I50.23 - Acute on chronic systolic (congestive) heart failure - Patient Summary/Data Hospital Course: No tachycardia observed during stay, however bradycardia persisted with demand pacemaker firing only when rate became quite low. Trop/CKMB negative. ProBNP slightly elevated. DDimer normal. Call placed to [facility] to discuss the bradycardia, pacemaker, hypotension, and dysphagia. Patient accepted in transfer by for continued workup of these complaints. Will be able to be seen by Cardiology as well as GI. - Discharge Plan Home Medications: Home Meds ALPRAZolam [Xanax] 2 mg PO BEDTIME PRN 03/11/14 [History] Azelastine HCl 2 spray NASBOTH BID PRN 03/11/14 [History] Calcium Carb & Citrate/Vit D3 [Citracal + D ER] 1 tab PO BEDTIME 03/11/14 [ History] Citalopram [Citalopram HBr] 20 mg PO DAILY 03/11/14 [History] Ferrous Sulfate 325 mg PO DAILY 03/11/14 [History] Lutein/Minerals/Vit A,C & E [Ocuvite] 1 tab PO DAILY 03/11/14 [History] Multivitamin [Daily Multiple Vitamin] 1 tab PO DAILY 03/11/14 [History] Omeprazole 20 mg PO DAILY 03/11/14 [History] Rosuvastatin [Crestor] 20 mg PO BEDTIME 03/11/14 [History] Ubidecarenone [Co Q-10] 100 mg PO BID 03/11/14 [History] traMADol Hcl/Acetaminophen [Ultracet Tablet] 1 tab PO DAILY PRN 03/11/14 [ History] Cyanocobalamin (Vitamin B12) [Vitamin B12] 1,000 mcg IJ Q30D 04/19/14 [History] Ketotifen Fumarate [Zaditor] 1 drop EYEBOTH BID PRN 04/19/14 [History] Aspirin [Halfprin] 81 mg PO BEDTIME 09/16/17 [History] Carvedilol 3.125 mg PO BID 09/16/17 [History] cycloSPORINE [Restasis] 1 drop EYEBOTH BID 09/16/17 [History] Forms: ED Department Discharge Referrals: Virginia Genao, [employer] [Primary Care Provider] - - Discharge Summary/Plan Comment DC Time >30 min.: No - General Info Date of Service: 09/17/17 Admission Dx/Problem (Free Text: Epigastric discomfort. Possible atypical chest pain. Episode of pounding/rapid heart rate. Functional Status: Reports: Pain Controlled, Tolerating Diet, Ambulating, Urinating. Denies: New Symptoms - Review of Systems General: Reports: Fatigue. Denies: Fever, Chills HEENT: Reports: No Symptoms Pulmonary: Reports: Shortness of Breath (mild, feels better with O2). Denies: Pleuritic Chest Pain, Cough, Sputum, Hemoptysis, Wheezing Cardiovascular: Reports: No Symptoms. Denies: Chest Pain Gastrointestinal: Reports: No Symptoms Genitourinary: Reports: No Symptoms Musculoskeletal: Reports: No Symptoms Skin: Reports: No Symptoms Neurological: Reports: No Symptoms Psychiatric: Reports: No Symptoms - Patient Data Vitals - Most Recent: Last Vital Signs Temp 36.8 C 09/17/17 08:00 Pulse 60 09/17/17 08:40 Resp 17 09/17/17 08:00 BP 117/63 09/17/17 08:40 Pulse Ox 98 09/17/17 08:00 Weight - Most Recent: 64.319 kg I&O - Last 24 hours: Intake & Output 09/16/17 09/17/17 09/17/17 22:59 06:59 14:59 Intake Total 50 Output Total 550 Balance -500 Lab Results - Last 24 hrs: Laboratory Results - last 24 hr 09/17/17 09/17/17 09/17/17 Range/Units 07:00 07:00 07:00 WBC 6.0 (4.0-10.2) K/uL RBC 3.84 (3.77-5.09) M/uL Hgb 11.9 (11.7-15.5) g/dL Hct 36.6 (34.0-46.0) % MCV 95.3 (84.0-98.0) fL MCH 31.0 (28.2-33.3) pg MCHC 32.5 (31.7-36.0) g/dL RDW 14.6 H (11.2-14.1) % Plt Count 210 (150-350) K/uL Neut % (Auto) 61.3 (45.0-80.0) % Lymph % (Auto) 25.0 (10.0-50.0) % [place] % (Auto) 10.1 (2.0-14.0) % Eos % (Auto) 3.3 (0.0-5.0) % Baso % (Auto) 0.3 (0.0-2.0) % Neut # (Auto) 3.68 (1.40-7.00) K/uL Lymph # (Auto) 1.50 (0.50-3.50) K/uL [place] # (Auto) 0.61 (0.00-1.00) K/uL Eos # (Auto) 0.20 (0.00-0.50) K/uL Baso # (Auto) 0.02 (0.00-0.20) K/uL Sodium 143 (136-145) mmol/L Potassium 4.1 (3.5-5.1) mmol/L Chloride 106 (98-107) mmol/L Carbon Dioxide 28.3 (21.0-32.0) mmol/L BUN 19 H (7-18) mg/dL Creatinine 0.90 (0.51-1.17) mg/dL Est Cr Clr Drug Dosing 43.31 mL/min Estimated GFR (MDRD) > 60 mL/min Glucose 86 (74-106) mg/dL Hemoglobin A1c (4.3-5.7) % Lactic Acid 1.5 (0.4-2.0) mmol/L Calcium 8.7 (8.5-10.1) mg/dL Total Bilirubin 0.8 (0.2-1.0) mg/dL AST 16 (15-37) U/L ALT 17 (12-78) U/L Alkaline Phosphatase 48 (46-116) IU/L Creatine Kinase 74 (26-308) U/L Creatine Kinase Index 1.6 (0.0-2.5) % CK-MB (CK-2) 1.20 (0.00-3.60) ng/mL Troponin I 0.000 (0.000-0.056) ng/mL NT-Pro-B Natriuret Pep 520 H (0-125) pg/mL Total Protein 6.7 (6.4-8.2) g/dL Albumin 3.2 L (3.4-5.0) g/dL Triglycerides 107 (30-150) mg/dL Cholesterol 154 (100-200) mg/dL LDL Cholesterol, Calc 74 (0-100) mg/dL HDL Cholesterol 59 (40-60) mg/dL 02/28/18 Range/Units 07:00 WBC (4.0-10.2) K/uL RBC (3.77-5.09) M/uL Hgb (11.7-15.5) g/dL Hct (34.0-46.0) % MCV (84.0-98.0) fL MCH (28.2-33.3) pg MCHC (31.7-36.0) g/dL RDW (11.2-14.1) % Plt Count (150-350) K/uL Neut % (Auto) (45.0-80.0) % Lymph % (Auto) (10.0-50.0) % [place] % (Auto) (2.0-14.0) % Eos % (Auto) (0.0-5.0) % Baso % (Auto) (0.0-2.0) % Neut # (Auto) (1.40-7.00) K/uL Lymph # (Auto) (0.50-3.50) K/uL [place] # (Auto) (0.00-1.00) K/uL Eos # (Auto) (0.00-0.50) K/uL Baso # (Auto) (0.00-0.20) K/uL Sodium (136-145) mmol/L Potassium (3.5-5.1) mmol/L Chloride (98-107) mmol/L Carbon Dioxide (21.0-32.0) mmol/L BUN (7-18) mg/dL Creatinine (0.51-1.17) mg/dL Est Cr Clr Drug Dosing mL/min Estimated GFR (MDRD) mL/min Glucose (74-106) mg/dL Hemoglobin A1c 5.9 H (4.3-5.7) % Lactic Acid (0.4-2.0) mmol/L Calcium (8.5-10.1) mg/dL Total Bilirubin (0.2-1.0) mg/dL AST (15-37) U/L ALT (12-78) U/L Alkaline Phosphatase (46-116) IU/L Creatine Kinase (26-308) U/L Creatine Kinase Index (0.0-2.5) % CK-MB (CK-2) (0.00-3.60) ng/mL Troponin I (0.000-0.056) ng/mL NT-Pro-B Natriuret Pep (0-125) pg/mL Total Protein (6.4-8.2) g/dL Albumin (3.4-5.0) g/dL Triglycerides (30-150) mg/dL Cholesterol (100-200) mg/dL LDL Cholesterol, Calc (0-100) mg/dL HDL Cholesterol (40-60) mg/dL Med Orders - Current: Current Medications Acetaminophen (Tylenol) 650 mg PO Q4H PRN PRN Reason: Pain Alprazolam (Xanax) 2 mg PO BEDTIME PRN PRN Reason: Anxiety Last Admin: 09/16/17 23:56 Dose: 2 mg Aspirin (Halfprin) 81 mg PO BEDTIME [facility] Carvedilol (Coreg) 3.125 mg PO BID [facility] Last Admin: 09/17/17 08:40 Dose: 3.125 mg Citalopram Hydrobromide (Celexa) 20 mg PO DAILY [facility] Last Admin: 09/17/17 08:40 Dose: 20 mg Coenzyme Q10 (Coenzyme Q10) 100 mg PO BID [facility] Last Admin: 09/17/17 08:39 Dose: 100 mg Enoxaparin Sodium (Lovenox) 40 mg SUBCUT Q24H [facility] Last Admin: 09/16/17 23:57 Dose: 40 mg Ferrous Sulfate (Ferrous Sulfate) 325 mg PO DAILY [facility] Last Admin: 09/17/17 08:39 Dose: 325 mg Ketotifen Fumarate (Ketotifen 0.025% Ophth Soln) 0 ml EYEBOTH BID PRN PRN Reason: Dry Eyes Non-Formulary Medication (Azelastine Hcl [Azelastine Hcl]) 2 spray NASBOTH BID PRN PRN Reason: Dry Eyes Cyclosporine [ Restasis] 0.05% Ophth EmulsionOwn Med 1 drop EYEBOTH BID [facility] Last Admin: 09/17/17 08:39 Dose: 1 drop Rosuvastatin Calcium (Crestor) 20 mg PO BEDTIME [facility] Last Admin: 09/16/17 23:57 Dose: 20 mg Sodium Chloride (Saline Flush) 10 ml FLUSH ASDIRECTED PRN PRN Reason: Keep Vein Open Last Admin: 09/16/17 19:54 Dose: 10 ml Sodium Chloride (Saline Flush) 10 ml FLUSH Q12HR PRN PRN Reason: Keep Vein Open Discontinued Medications Aspirin (Aspirin) 324 mg CHEW ONETIME ONE Stop: 09/16/17 19:30 Last Admin: 09/16/17 19:54 Dose: 324 mg Famotidine (Pepcid) 40 mg IVPUSH ONETIME ONE Stop: 09/16/17 19:30 Last Admin: 09/16/17 19:54 Dose: 40 mg Rosuvastatin Calcium (Crestor) 20 mg PO BEDTIME ORNALD Ticagrelor (Brilinta) 180 mg PO ONETIME ONE Stop: 09/16/17 19:30 Last Admin: 09/16/17 19:54 Dose: 180 mg - Exam Quality Assessment: Reports: Supplemental Oxygen General: Reports: Alert, Oriented, Cooperative, No Acute Distress HEENT: Reports: Pupils Equal, Pupils Reactive, EOMI, Mucous Membr. Moist/[place]ck: Reports: Supple Lungs: Reports: Clear to Auscultation, Normal Respiratory Effort Cardiovascular: Reports: Bradycardia. Denies: Murmurs GI/Abdominal Exam: Normal Bowel Sounds, Soft, Non-Tender Back Exam: Reports: Normal Inspection. Denies: CVA Tenderness (L), CVA Tenderness (R) Extremities: Normal Inspection, Normal Range of Motion, No Pedal Edema, Normal Capillary Refill Skin: Reports: Warm, Dry, Intact Neurological: Reports: No New Focal Deficit Psy/Mental Status: Reports: Alert, Normal Affect, Normal Mood EKG INTERPRETATION EKG Date: 09/17/17 Time: 07:19 Rhythm: Other (bradycardia, intermittent pacer spikes) Rate (Beats/Min): 49 [place]: LAD-Left [place] Deviation P-Wave: Present QRS: Normal ST-T: Normal QT: Normal Comparison: Change From Previous EKG (more bradycardic today, intermittently paced) EKG Interpretation Comments: FLipped Ts noted multiple leads, 1st degree AV block *Q Meaningful Use (DIS) - VTE *Q VTE Criteria *Q: - Stroke *Q Stroke Criteria *Q: - AMI *Q AMI Criteria *Q:
[2017-09-17] MEDS ORDERED: Aspirin 81 MG Tab.EC PO SCH (20:00)
[2017-09-17] MEDS ORDERED: Rosuvastatin 10 MG Tab PO SCH (20:00)
== END 2017-09-17 13:05 ==
LOC: LL.ED 19:25 → UNDOADMOB 20:24 → LL.MS 20:24 → UNDODISOB 09-17 13:05
PROVIDERS: ADMIT Family Medicine; ATTEND Family Medicine
DX: R00.1 Bradycardia, unspecified (principal); R13.10 Dysphagia, unspecified; J44.9 Chronic obstructive pulmonary disease, unspecified; I10 Essential (primary) hypertension; I25.708 Atherosclerosis of coronary artery bypass graft(s), unspecified, with other forms of angina pectoris; E78.5 Hyperlipidemia, unspecified; M15.0 Primary generalized (osteo)arthritis; K21.9 Gastro-esophageal reflux disease without esophagitis; R79.89 Other specified abnormal findings of blood chemistry; I50.23 Acute on chronic systolic (congestive) heart failure; Z79.82 Long term (current) use of aspirin; Z79.899 Other long term (current) drug therapy; Z88.1 Allergy status to other antibiotic agents; Z88.2 Allergy status to sulfonamides; Z88.8 Allergy status to other drugs, medicaments and biological substances; Z95.5 Presence of coronary angioplasty implant and graft; Z87.891 Personal history of nicotine dependence
CPT/HCPCS: 36415; 71045; 80053; 80061; 82550; 82553; 83036; 83605; 83735; 83880; 84443; 84484; 84550; 85025; 85379; 85610; 85730; 93005; 96372; 96374; 99285; A9270; G0378; J1650; J7050; 93010; 99217; 99220; S0028

== ENCOUNTER 2021-05-29 02:12 | Inpatient (IN) | payer MEDICARE, OTHER ==
--- NOTE | 2021-05-29 02:44 | EDM.PDOC ---
ED HPI GENERAL MEDICAL PROBLEM - General Chief Complaint: Respiratory Problem Stated Complaint: Shortness or breath Time Seen by Provider: 05/29/21 02:12 Source of Information: Reports: Patient History Limitations: Reports: No Limitations - History of Present Illness INITIAL COMMENTS - FREE TEXT/NARRATIVE: Pt. presents to ER with acute onset shortness of breath, fatigue and chills. She states that the symptoms started just prior to arrival to ER. She was transported to ER via private vehicle. Pt. states that she was seen in [facility] for a UTI today and was started on macrobid. She states that she doctors at [facility] in [facility] typically, but was seen by Alan De Luna in the local [facility] today. Pt. was in extreme respiratory distress on arrival to ER, speaking in 1-2 word sentences. Pt. states that 'everything" is wrong with her heart. According to her med records, she has a history of CAD, ischemic cardiomyopathy, and has a pacemaker/defibrillator. Pt. was brought to ER by her . He really is unable to provide any history events leading up to this, deferring to the patient who is having difficulty communicating due to severe respiratory distress. She was able to walk into ER. She was mildly diaphoretic and ashen. - Related Data Allergies Allergy/AdvReac Type Severity Reaction Status Date / Time amoxicillin trihydrate Allergy Unknown Cannot Verified 09/16/17 22:13 [From Augmentin] Remember bupropion HCl Allergy Unknown Cannot Verified 09/16/17 22:13 [From Wellbutrin] Remember cetirizine HCl [From Zyrtec] Allergy Unknown Cannot Verified 09/16/17 22:13 Remember darifenacin hydrobromide Allergy Unknown Cannot Verified 09/16/17 22:13 [From Enablex] Remember fluticasone propionate Allergy Unknown Cannot Verified 09/16/17 22:13 [From Flonase] Remember lovastatin Allergy Unknown Diarrhea Verified 09/16/17 22:13 metoprolol tartrate Allergy Unknown Diarrhea Verified 09/16/17 22:13 [From Lopressor] paroxetine HCl [From Paxil] Allergy Unknown Cannot Verified 09/16/17 22:13 Remember potassium clavulanate Allergy Unknown Cannot Verified 09/16/17 22:13 [From Augmentin] Remember sertraline HCl [From Zoloft] Allergy Cannot Verified 02/27/18 22:13 Remember simvastatin [From Zocor] Allergy Cannot Verified 09/16/17 22:13 Remember Sulfa (Sulfonamide Allergy Itching Verified 09/16/17 22:13 Antibiotics) venlafaxine HCl Allergy Anxiety Verified 09/16/17 22:13 [From Effexor] verapamil HCl [From Verelan] Allergy Cannot Verified 09/16/17 22:13 Remember arginine Allergy Cannot Uncoded 09/16/17 22:13 Remember Home Meds: Home Meds Rosuvastatin [Crestor] 20 mg PO DAILY 03/11/14 [History] Ubidecarenone [Co Q-10] 200 mg PO BEDTIME 03/11/14 [History] traMADol Hcl/Acetaminophen [Ultracet Tablet] 1 tab PO Q8HR PRN 03/11/14 [History] Aspirin [Halfprin] 81 mg PO BEDTIME 09/16/17 [History] carvediloL [Carvedilol] 6.25 mg PO BID 09/16/17 [History] Methenamine Hippurate [Hiprex] 1 gm PO BID 05/29/21 [History] Nitrofurantoin Monohyd/M-Cryst [Macrobid 100 mg Capsule] 100 mg PO BID 05/29/21 [History] Nitroglycerin 0.4 mg SL ASDIRECTED PRN 05/29/21 [History] Pantoprazole [ProTONIX] 40 mg PO DAILY 05/29/21 [History] Vit A/C/E AC/Znox/Cupric Oxide [Eye Vitamin-Minerals Tablet] 1 each PO Q2D 05/29/21 [History] lisinopriL [Lisinopril] 5 mg PO DAILY 05/29/21 [History] Past Medical History - Past Health History Medical/Surgical History: Denies Medical/Surgical History HEENT History: Reports: Allergic Rhinitis, Hard of Hearing, Impaired Vision, Macular Degeneration, Other (See Below). Denies: Cataract, Glaucoma, Retinal Detachment Other HEENT History: She wears glasses. 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 Dry eye syndrome Cardiovascular History: Reports: Afib, Arrhythmia, Automatic Implantable Cardioverter Defibrillators, Bypass, CAD, Cardiomyopathy, Heart Failure, Heart Murmur, High Cholesterol, Hypertension, AR, Pacemaker, PTCA, Stents, Other (See Below). Denies: Aneurysm, Blood Clots/VTE/DVT, PVD, Syncope Other Cardiovascular History: PVCs, borderline incomplete bifascicular bundle branch block, PACs, first-degree AV block, and history of atrial fibrillation. Ischemic cardiomyopathy and large anterior wall acute AR on 06/24/91 with this post PTCA/stent and CABG as below. Mild left atrial enlargement and aortic valve insufficiency by echocardiogram as below Respiratory History: Reports: Asthma, COPD, Intubation, Previous, Sleep Apnea, Other (See Below). Denies: Bronchitis, Recurrent, Intubation, Difficult, PE, Pneumothorax, Pulmonary Fibrosis, TB Other Respiratory History: History of sleep apnea with patient not able to tolerate CPAP Gastrointestinal History: Reports: Diverticulosis, Fecal Incontinence, Gastritis, GERD, GI Bleed, Hiatal Hernia, PUD, Other (See Below). Denies: Bowel Obstruction, Celiac Disease, Cholelithiasis, Chronic Constipation, Chronic Diarrhea, Colon Polyp, Hepatitis, Inflammatory Bowel Disease, Irritable Bowel Syndrome, Jaundice, Pancreatitis Other Gastrointestinal History: Moderately large hiatal hernia by CT scan. Possible upper GI bleed Genitourinary History: Reports: Chronic Renal Insuffiency, Urinary Incontinence, Other (See Below). Denies: Acute Renal Failure, Dialysis, Renal Calculus, STD, UTI, Recurrent Other Genitourinary History: History of both stress and urinary urge incontinence. History of mild proteinuria BASKET BRAIDER History: Reports: Dysfunctional Uterine Bleeding, Ectopic , . Denies: Endometriosis Other BASKET BRAIDER History: Menopause in her early 50s. Benign ovarian cysts and vaginal polyps Musculoskeletal History: Reports: Arthritis, Back Pain, Chronic, Fracture, Gout, Neck Pain, Chronic, Osteoarthritis, Osteoporosis, Other (See Below). Denies: Amputation, Fibromyalgia, RA, SLE Other Musculoskeletal History: Neck fracture and 2 vertebral fracture in T5 and T11 secondary to severe horse injury on 03/27/13. Left thumb fracture at age 17. Additional T1 and T2 fractures in the past. Hyperuricemia without history of gout attacks Neurological History: Reports: Concussion, Headaches, Chronic, Head Trauma, Migraines, Neuropathy, Peripheral, Other (See Below). Denies: Alzheimers Disease, Cerebral Aneurysms, CVA, MS, Neuropathy, Diabetic, Parkinson's, Seizure, TIA Other Neuro History: History of head concussion secondary to force injury as above in 2013 Psychiatric History: Reports: Anxiety, Depression. Denies: Abuse, Victim of, ADD, ADHD, Addiction, Psych Hospitalization(s), PTSD, Suicide Attempt, Suicidal Ideation Endocrine/Metabolic History: Reports: Other (See Below). 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 Additional blood transfusion on 08/03/12 secondary to symptomatic anemia. 3 units in 1995 secondary to tubal Oncologic (Cancer) History: Reports: None. Denies: Basal Cell Carcinoma, Breast, Cervix, Colon, Leukemia, Lymphoma, Malignant Melanoma, Non-Hodgkin's Lymphoma, Ovarian, Squamous Cell Carcinoma, Uterine Dermatologic History: Reports: None. Denies: Eczema, Psoriasis - Infectious Disease History Infectious Disease History: Reports: Chicken Pox, Measles, Mumps, Pertussis (Whooping Cough). Denies: C-Difficile, Meningitis, Mononucleosis, MRSA, Rheumatic Fever, Rubella, Scarlet Fever, Shingles, TB, VRE - Past Surgical History Head Surgeries/Procedures: Reports: None HEENT Surgical History: Reports: LASIK, Naso-Sinus Surgery, Oral Surgery, Other (See Below). Denies: Adenoidectomy, Cataract Surgery, Eye Surgery, Laser Surgery, Myringotomy w Tube(s), Tonsillectomy Other HEENT Surgeries/Procedures: Multiple teeth extractions. Septoplasty with bilateral middle and inferior turbinate trimming on 09/18/01. LASIK Cardiovascular Surgical History: Reports: AICD, Coronary Artery Bypass, Coronary Artery Stent, Pacer, Percutaneous Transluminal Angioplasty, Other (See Below). Denies: Aneurysm Other Cardiovascular Surgeries/Procedures: PTCA/stent on 06/24/91. CABG 1 of the LAD on 03/29/14. AICDpacemaker placement in 2009 Respiratory Surgical History: Reports: None. Denies: Lung Biopsies, Thoracentesis GI Surgical History: Reports: Colonoscopy, EGD, Other (See Below). Denies: Appendectomy, Cholecystectomy, Hernia, Abdominal, Hernia, Inguinal, Hernia Repair/Other, Polypectomy Other GI Surgeries/Procedures: Last EGD and colonoscopy in 2013 with previous EGD and colonoscopy on 11/14/05 Female Surgical History: Reports: Section, D&C, Salpingo- Oophorectomy, Other (See Below). Denies: Breast Biopsy, Hysterectomy, Tubal Ligation Other Female Surgeries/Procedures: on 12/14/69. Left sided salpingo- oophorectomy secondary to tubal in March 1966. D&Cs 2 secondary to dysfunctional uterine bleeding Endocrine Surgical History: Reports: None. Denies: Thyroid Biopsy Neurological Surgical History: Reports: None. Denies: C-Spine, Discectomy, Laminectomy, Lumbar Spine, Sacral Spine, Spinal Fusion Oncologic Surgical History: Reports: None Dermatological Surgical History: Reports: None - Past Imaging History Past Imaging History: Reports: Angiography (Heart Catheterization in March 28, 2014), Cardiac Echo (Last echocardiogram on 11/26/16 with ejection fraction of 35-40% with otherwise findings as above with similar findings on previous echocardiogram on 03/25/14), Carotid US (Last on 09/27/14 previous evaluation on ), CAT Scan (CTA of the chest on 03/12/14. CT of the chest on 03/27/13. CT of the lumbar spine on 06/25/10), DEXA Scan (12/11/12), Mammogram (Last mammogram in 2016), Stress Testing (Positive Dobutamine Cardiolite stress test on 03/17/14 with ejection fraction of 32% and subsequent CABG as above. Level cardiac stress test on 05/03/14), Ultrasound (Renal ultrasound on 06/27/10) Social & Family History - Family History HEENT: Reports: Macular Degeneration, Other (See Below). Denies: Glaucoma, Retinal Detachment Other HEENT Family History: Mother with macular degeneration Cardiac: Reports: Bypass, CAD, Cardiomyopathy, Heart Failure, High Cholesterol, Hypertension, AR, Stent, Other (See Below). Denies: Afib, Aneurysm, Arrhythmia, Blood Clots/VTE/DVT, PVD/COD, Syncope Other Cardiac Family History: Mother with history of CHF and pacemaker at age 86 with fatal CHF and kidney failure at age 88. Mother with AR at age 58 with father having an AR in his 60s with three-vessel CABG. 2 maternal aunts with fatal MIs in their 60s. 2 paternal uncles with fatal MIs with brother having an AR in his 30s. Brother with PTCA in his 50s. Cousin with fatal AR at age 48. Maternal uncle with fatal AR at age 73. Brother with AR and three-vessel CABG at age 48. Hyperlipidemia in parents. Hypertension in mother and brother Respiratory: Reports: None. Denies: Asthma, COPD, PE, Pneumothorax, Sleep Apnea GI: Reports: Cholelithiasis, PUD, Other (See Below). Denies: Celiac Disease, Colon Polyps, GERD, GI bleed, Hepatitis, Inflammatory Bowel Disease, Irritable Bowel Syndrome, Pancreatitis Other GI Family History: Mother and paternal uncle with cholelithiasis. Paternal uncle with peptic ulcer disease with history of abdominal gunshot injury : Reports: Dialysis, Renal Disease/Insufficiency, Other (See Below). Denies: Renal Calculus Other Family History: Father with fatal CHF and/or kidney failure at age 88 as above. Paternal uncle required dialysis OBGYN: Reports: None. Denies: Endometriosis, Recurrent Spontaneous Musculoskeletal: Reports: None. Denies: Gout, RA, SLE Neurological: Reports: CVA, TIA, Other (See Below). Denies: Alzheimers Disease, Cerebral Aneurysms, Dementia, MS, Parkinson's, Seizure Other Neurological Family History: Mother with CVA at age 79 and additional history of multiple TIAs Psychiatric: Reports: Anxiety, Depression, Psych Hospitalization(s), PTSD, Other (See Below). Denies: Abuse, Victim of, ADD, ADHD, Suicide Attempt Other Psychiatric Family History: Father with anxiety depression disorder and paranoid schizophrenia which did require psychiatric hospitalization. Brother with history of PTSD secondary to service. Endocrine/Metabolic: Reports: Diabetes, type II, Hypothyroidism, Other (See Below). Denies: Diabetes, Type I, Diabetes Mellitus, Type 3c, IDDM Other Endocrine/Metabolic Family History: Paternal aunt with fatal diabetes mellitus in her 60s. 2 maternal uncles, paternal grandmother, and paternal uncle with AODM. Hypothyroidism in sister and mother. Hematologic: Reports: None. Denies: Anemia, Transfusion Reaction Immunologic: Reports: None. Denies: AIDS, HIV, SLE Dermatologic: Reports: None. Denies: Eczema, Psoriasis Oncologic: Reports: Colon, Prostate, Other (See Below). Denies: Breast, Hodgkin's Lymphoma, Leukemia, Lymphoma, Metastatic, Non-Hodgkin's Lymphoma, Ovarian, Skin, Uterine Other Oncologic Family History: Maternal aunt with fatal colon cancer at age 79. Father with leukemia. Brother with prostate cancer - Caffeine Use Caffeine Use: Reports: Coffee (2 Cups per day), Soda (1 soda per month). 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45) ED ROS GENERAL - Review of Systems Review Of Systems: See Below Constitutional: Reports: Fever, Chills, Malaise, Weakness HEENT: Reports: No Symptoms Respiratory: Reports: Shortness of Breath Cardiovascular: Reports: Dyspnea on Exertion Endocrine: Reports: No Symptoms GI/Abdominal: Reports: No Symptoms : Reports: Dysuria (currently being treated for a UTI) Musculoskeletal: Reports: No Symptoms Skin: Reports: No Symptoms Neurological: Reports: No Symptoms Psychiatric: Reports: No Symptoms Hematologic/Lymphatic: Reports: No Symptoms Immunologic: Reports: No Symptoms ED EXAM, GENERAL - Physical Exam Exam: See Below Exam Limited By: Respiratory Distress General Appearance: Alert, Anxious Eye Exam: Bilateral Eye: EOMI, PERRL Nose: Normal Inspection, No Blood Throat/Mouth: Normal Inspection, Normal Lips, Normal Oropharynx, Normal Voice, No Airway Compromise Head: Atraumatic, Normocephalic Neck: Normal Inspection, Supple, Non-Tender Respiratory/Chest: Decreased Breath Sounds, Crackles Cardiovascular: Normal Peripheral Pulses, Regular Rate, Rhythm, No Edema, No JVD Peripheral Pulses: 4+: Radial (L) GI/Abdominal: Soft, Non-Tender, No Distention, No Mass (Female) Exam: Deferred Rectal (Female) Exam: Deferred Back Exam: Normal Inspection, Full Range of Motion Extremities: Normal Inspection, Normal Range of Motion, Non-Tender, No Pedal Edema, Normal Capillary Refill Neurological: Alert, Oriented, CN II-XII Intact, Normal Cognition, Normal Gait, No Motor/Sensory Deficits Psychiatric: Normal Affect, Normal Mood Skin Exam: Warm, Intact, No Rash, Diaphoretic, Pallor (ashen,) #1 Interpretation Rhythm: NSR [place]: Normal P-Wave: Present QRS: Normal ST-T: Normal QT: Normal EKG Interpretation Comments: Sinus rhythm at 94. Quality of EKG poor due to tachypnea/patient movement. Course - Vital Signs Last Recorded V/S: Last Vital Signs Temp 36.8 C 05/29/21 02:12 Pulse 94 05/29/21 06:25 Resp 28 H 05/29/21 06:25 BP 109/53 L 05/29/21 06:25 Pulse Ox 99 05/29/21 06:25 - Orders/Labs/Meds Orders: Active Orders 24 hr Category Date Time Status Patient Status [ADT] Routine ADT 05/29/21 06:38 Ordered EKG Documentation Completion [RC] ASDIRECTED Care 05/29/21 05:09 Active EKG Documentation Completion [RC] ASDIRECTED Care 05/29/21 05:10 Active Peripheral IV Care [RC] . DIRECTED Care 05/29/21 02:24 Active CTA Chest W WO Contrast [Ang Chest] [CT] Stat Exams 05/29/21 04:38 Taken Chest 1V Frontal [CR] Stat Exams 05/29/21 02:23 Taken CULTURE BLOOD [BC] Stat Lab 05/29/21 02:24 Ordered CULTURE BLOOD [BC] Stat Lab 05/29/21 03:55 Received INR,PT,PROTHROMBIN TIME [COAG] Stat Lab 05/29/21 02:23 Ordered LACTIC ACID [CHEM] Routine Lab 05/29/21 09:00 Ordered PTT,PARTIAL THROMBOPLSTIN TIME [COAG] Stat Lab 05/29/21 02:24 Ordered TROPONIN I HIGH SENSITIVITY [CHEM] Routine Lab 05/29/21 09:00 Ordered Furosemide [Lasix] Med 05/29/21 02:45 Active 40 mg IVPUSH DAILY Sodium Chloride 0.9% [Saline Flush] Med 05/29/21 02:23 Active 10 ml FLUSH ASDIRECTED PRN BiPAP [RESPCARE] Routine Oth 05/29/21 02:25 Active Blood Culture x2 Reflex Set [OM.PC] Stat Oth 05/29/21 02:24 Ordered Isolation [COMM] Routine Oth 05/29/21 02:24 Active Peripheral IV Insertion Adult [OM.PC] Routine Oth 05/29/21 02:24 Ordered Medication Orders Furosemide (Furosemide 40 Mg/4 Ml Vial) 40 mg IVPUSH DAILY RONALD Last Admin: 05/29/21 02:50 Dose: 40 mg Documented by: [id number] Sodium Chloride (Sodium Chloride 0.9% 10 Ml Syringe) 10 ml FLUSH ASDIRECTED PRN PRN Reason: Keep Vein Open Last Admin: 05/29/21 02:51 Dose: 10 ml Documented by: [id number] Labs: Laboratory Tests 05/29/21 05/29/21 05/29/21 Range/Units 03:34 03:50 03:50 WBC (4.0-10.2) K/uL RBC (3.77-5.09) M/uL Hgb (11.7-15.5) g/dL Hct (34.0-46.0) % MCV (84.0-98.0) fL MCH (28.2-33.3) pg MCHC (31.7-36.0) g/dL RDW (11.2-14.1) % Plt Count (150-350) K/uL Neut % (Auto) (45.0-80.0) % Lymph % (Auto) (10.0-50.0) % [place] % (Auto) (2.0-14.0) % Eos % (Auto) (0.0-5.0) % Baso % (Auto) (0.0-2.0) % Neut # (Auto) (1.40-7.00) K/uL Lymph # (Auto) (0.50-3.50) K/uL [place] # (Auto) (0.00-1.00) K/uL Eos # (Auto) (0.00-0.50) K/uL Baso # (Auto) (0.00-0.20) K/uL D-Dimer, Quantitative 750 H (0-400) ng/mL VBG pH (7.31-7.41) VBG pCO2 (41-51) mmHG VBG pO2 mmHG VBG HCO3 (23-28) mmol/L VBG Total CO2 mmol/L VBG O2 Saturation % VBG Base Excess ((-2)-3) mmol/L O2 Delivery Device Sodium 147 H (136-145) mmol/L Potassium 3.9 (3.5-5.1) mmol/L Chloride 109 H (98-107) mmol/L Carbon Dioxide 27.9 (21.0-32.0) mmol/L Anion Gap 14.0 (7-15) meq/L BUN 24 H (7-18) mg/dL Creatinine 1.29 H (0.51-1.17) mg/dL Est Cr Clr Drug Dosing 28.43 mL/min Estimated GFR (MDRD) 40 mL/min Glucose 116 H (70-99) mg/dL Lactic Acid (0.4-2.0) mmol/L Calcium 9.2 (8.5-10.1) mg/dL Phosphorus 4.4 (2.6-4.7) mg/dL Magnesium 2.0 (1.8-2.4) mg/dL Total Bilirubin 0.7 (0.2-1.0) mg/dL AST 24 (15-37) U/L ALT 18 (12-78) U/L Alkaline Phosphatase 52 (46-116) IU/L Troponin I High Sens 10 (<=51) ng/L NT-Pro-B Natriuret Pep 877 H (0-125) pg/mL Total Protein 7.0 (6.4-8.2) g/dL Albumin 3.8 (3.4-5.0) g/dL TSH, Ultra Sensitive 12.768 H (0.358-3.740) mIU/mL SARS-CoV-2 RNA (MARILEE) Negative (NEGATIVE) 05/29/21 05/29/21 05/29/21 Range/Units 03:50 03:55 03:55 WBC 8.0 (4.0-10.2) K/uL RBC 4.12 (3.77-5.09) M/uL Hgb 12.4 (11.7-15.5) g/dL Hct 38.8 (34.0-46.0) % MCV 94.2 (84.0-98.0) fL MCH 30.1 (28.2-33.3) pg MCHC 32.0 (31.7-36.0) g/dL RDW 13.2 (11.2-14.1) % Plt Count 153 (150-350) K/uL Neut % (Auto) 90.5 H (45.0-80.0) % Lymph % (Auto) 5.1 L (10.0-50.0) % [place] % (Auto) 2.9 (2.0-14.0) % Eos % (Auto) 1.5 (0.0-5.0) % Baso % (Auto) 0.0 (0.0-2.0) % Neut # (Auto) 7.28 H (1.40-7.00) K/uL Lymph # (Auto) 0.41 L (0.50-3.50) K/uL [place] # (Auto) 0.23 (0.00-1.00) K/uL Eos # (Auto) 0.12 (0.00-0.50) K/uL Baso # (Auto) 0.00 (0.00-0.20) K/uL D-Dimer, Quantitative (0-400) ng/mL VBG pH 7.29 L (7.31-7.41) VBG pCO2 60 H (41-51) mmHG VBG pO2 29 mmHG VBG HCO3 29 H (23-28) mmol/L VBG Total CO2 29 mmol/L VBG O2 Saturation 47 % VBG Base Excess 1 ((-2)-3) mmol/L O2 Delivery Device Bipap Sodium (136-145) mmol/L Potassium (3.5-5.1) mmol/L Chloride (98-107) mmol/L Carbon Dioxide (21.0-32.0) mmol/L Anion Gap (7-15) meq/L BUN (7-18) mg/dL Creatinine (0.51-1.17) mg/dL Est Cr Clr Drug Dosing mL/min Estimated GFR (MDRD) mL/min Glucose (70-99) mg/dL Lactic Acid 2.2 H (0.4-2.0) mmol/L Calcium (8.5-10.1) mg/dL Phosphorus (2.6-4.7) mg/dL Magnesium (1.8-2.4) mg/dL Total Bilirubin (0.2-1.0) mg/dL AST (15-37) U/L ALT (12-78) U/L Alkaline Phosphatase (46-116) IU/L Troponin I High Sens (<=51) ng/L NT-Pro-B Natriuret Pep (0-125) pg/mL Total Protein (6.4-8.2) g/dL Albumin (3.4-5.0) g/dL TSH, Ultra Sensitive (0.358-3.740) mIU/mL SARS-CoV-2 RNA (MARILEE) (NEGATIVE) Meds: Medications Generic Name Dose Route Start Last Admin Trade Name Freq PRN Reason Stop Dose Admin Furosemide 40 mg 05/29/21 02:45 05/29/21 02:50 Furosemide 40 Mg/4 Ml Vial IVPUSH 40 mg DAILY RONALD Administration Sodium Chloride 10 ml 05/29/21 02:23 05/29/21 02:51 Sodium Chloride 0.9% 10 Ml Syringe FLUSH 10 ml ASDIRECTED PRN Administration Keep Vein Open Discontinued Medications Generic Name Dose Route Start Last Admin Trade Name Roxanne PRN Reason Stop Dose Admin Iopamidol 100 ml 05/29/21 05:01 05/29/21 05:46 Iopamidol 755 Mg/Ml 100 Ml Bottle IVPUSH 05/29/21 05:02 100 ml ONETIME STA Administration Ondansetron HCl 4 mg 05/29/21 03:17 05/29/21 03:21 Ondansetron 4 Mg/2 Ml Sdv IVPUSH 05/29/21 03:18 4 mg ONETIME ONE Administration - Radiology Interpretation Free Text/Narrative:: Chest x-ray did not reveal any significant pathology. CTA of chest was obtained. No PE noted. No other acute pathology, such as infiltrate noted. Incidental findings of pulmonary nodules noted which will require monitoring post discharge. - Re-Assessments/Exams Free Text/Narrative Re-Assessment/Exam: Pt. O2 sat was 71% on arrival to ER. She was speaking in 2-3 word sentences. Initially pt. was placed on NC at 5L/min. and she remained in the low to mid 70% range. Pt. was subsequently placed on bipap at 15/5 and O2 sat rapidly improved to hear 100%. Initially 100% O2, then down to 40%. She was given lasix 40mg IV and observed. Lab had great difficulty obtaining blood samples, and patient refused further attempts at blood draws. Subsequently, only 1 sat of blood cultures and no coags were obtained. Troponin was negative. Lactic acid mildly elevated at 2.2. Departure - Departure Time of Disposition: 06:55 Disposition: Refer to Observation Clinical Impression: Dyspnea, Lactic acidosis - Discharge Information Referrals: Alan De Luna PA [Primary Care Provider] - Forms: ED Department Discharge Sepsis Event Note (ED) - Focused Exam Vital Signs: Vital Signs Temp Pulse Resp BP Pulse Ox 05/29/21 06:25 94 28 H 109/53 L 99 05/29/21 05:48 97 22 H 130/46 L 100 05/29/21 05:11 91 24 H 105/49 L 99 05/29/21 04:45 79 30 H 112/54 L 97 05/29/21 04:31 77 30 H 107/51 L 98 05/29/21 04:15 71 32 H 94/36 L 99 05/29/21 04:00 72 32 H 93/55 L 100 05/29/21 03:45 74 32 H 93/55 L 100 05/29/21 03:30 77 36 H 91/57 L 96 05/29/21 03:15 73 36 H 116/45 L 99 05/29/21 03:00 71 42 H 130/74 100 05/29/21 02:45 72 42 H 125/106 H 98 05/29/21 02:30 74 44 H 120/73 99 05/29/21 02:20 80 48 H 125/66 91 L 05/29/21 02:12 36.8 C 80 32 H 125/66 77 L - Problem List Review Problem List Initiated/Reviewed/Updated: Yes - My Orders Last 24 Hours: My Active Orders 05/29/21 02:23 Chest 1V Frontal [CR] Stat INR,PT,PROTHROMBIN TIME [COAG] Stat Sodium Chloride 0.9% [Saline Flush] 10 ml FLUSH ASDIRECTED PRN 05/29/21 02:24 Peripheral IV Care [RC] . DIRECTED CULTURE BLOOD [BC] Stat PTT,PARTIAL THROMBOPLSTIN TIME [COAG] Stat Blood Culture x2 Reflex Set [OM.PC] Stat Isolation [COMM] Routine Peripheral IV Insertion Adult [OM.PC] Routine 05/29/21 02:25 BiPAP [RESPCARE] Routine 05/29/21 02:45 Furosemide [Lasix] 40 mg IVPUSH DAILY 05/29/21 03:55 CULTURE BLOOD [BC] Stat 05/29/21 04:38 CTA Chest W WO Contrast [Ang Chest] [CT] Stat 05/29/21 05:09 EKG Documentation Completion [RC] ASDIRECTED 05/29/21 05:10 EKG Documentation Completion [RC] ASDIRECTED 05/29/21 06:38 Patient Status [ADT] Routine 05/29/21 09:00 LACTIC ACID [CHEM] Routine TROPONIN I HIGH SENSITIVITY [CHEM] Routine - Assessment/Plan Last 24 Hours: My Active Orders 05/29/21 02:23 Chest 1V Frontal [CR] Stat INR,PT,PROTHROMBIN TIME [COAG] Stat Sodium Chloride 0.9% [Saline Flush] 10 ml FLUSH ASDIRECTED PRN 05/29/21 02:24 Peripheral IV Care [RC] . DIRECTED CULTURE BLOOD [BC] Stat PTT,PARTIAL THROMBOPLSTIN TIME [COAG] Stat Blood Culture x2 Reflex Set [OM.PC] Stat Isolation [COMM] Routine Peripheral IV Insertion Adult [OM.PC] Routine 05/29/21 02:25 BiPAP [RESPCARE] Routine 05/29/21 02:45 Furosemide [Lasix] 40 mg IVPUSH DAILY 05/29/21 03:55 CULTURE BLOOD [BC] Stat 05/29/21 04:38 CTA Chest W WO Contrast [Ang Chest] [CT] Stat 05/29/21 05:09 EKG Documentation Completion [RC] ASDIRECTED 05/29/21 05:10 EKG Documentation Completion [RC] ASDIRECTED 05/29/21 06:38 Patient Status [ADT] Routine 05/29/21 09:00 LACTIC ACID [CHEM] Routine TROPONIN I HIGH SENSITIVITY [CHEM] Routine Plan: Pt. reported feeling much improved and requested to be discharged. Pt. agreed to be admitted observation after some discussion. Will trend troponin and lactic acid. It is unclear what caused her severe respiratory distress. She has a history of cardiomyopathy. There is no evidence of PE, infiltrate, or other pathology. [facility] was contacted and records were requested. There apparently is not any cardiology [facility] on file, and there is some issue with obtaining faxes from them, as only the first couple of pages are coming through despite numerous requests for documentation. Pt. indicates that she is a code 1.
[2021-05-29] MEDS ORDERED: Furosemide 40 MG/4 ML VIAL IVPUSH SCH (02:45)
[2021-05-29] MEDS: Sodium Chloride 0.9% 10 ML Syringe FLUSH PRN (02:51)
[2021-05-29] MEDS ORDERED: Ondansetron 4 MG/2 ML SDV IVPUSH ONE (03:17)
[2021-05-29 04:08] LABS: BICARBONATE,VENOUS 29 mmol/L (23-28); O2 DELIVERY DEVICE BIPAP; O2 SATURATION VENOUS 47 %; PCO2 VENOUS 60 mmHG (41-51); PH,VENOUS 7.29 (7.31-7.41); PO2 VENOUS 29 mmHG
[2021-05-29 04:09] LABS: BASE EXCESS VENOUS 1 mmol/L ((-2)-3)
[2021-05-29] MEDS ORDERED: Iopamidol 755 Mg/ML 100 ML Bottle IVPUSH STA (05:01)
--- NOTE | 2021-05-29 08:27 | PCM.HP.2 ---
H&P History of Present Illness - General Date of Service: 05/29/21 Admit Problem/Dx: Admission Diagnosis/Problem Admission Diagnosis/Problem Shortness of breath Source of Information: Patient History Limitations: Reports: No Limitations - History of Present Illness Initial Comments - Free Text/Narative: This is the admission H&P for the patient that I will change to inpatient status. This patient is a 76-year-old female with a history of CAD, SIOMARA, COPD, cardiac pacemaker, hypertension, ischemic cardiomyopathy, chronic systolic congestive heart failure hypercholesteremia current urinary tract infections and generalized anxiety disorder. This patient was seen in the clinic earlier this week and diagnosed with a recurrent urinary tract infection. She was started on Macrobid. Later in that day she developed severe shortness of breath. She was seen in the emergency department by Chapin Perera PA-C for acute respiratory distress. She was noted to be hypoxic and in distress upon arrival. Her oxygen saturation was in the 70s. She was initially started on BiPAP she was given steroids. She had a CTA of the chest that was negative for any pulmonary embolism. Her cardiac work-up was unremarkable. She was admitted into the hospital for hypoxia and respiratory depression of unknown cause and recurrent urinary tract infection. Upon examination the patient still complains of some shortness of breath at rest. She does feel quite a bit better. She does have some chronic pain in her joints which is typical for her. She is still requiring 4 L of nasal cannula to keep her oxygen saturation above 92%. - Related Data Allergies/Adverse Reactions: Allergies Allergy/AdvReac Type Severity Reaction Status Date / Time amoxicillin trihydrate Allergy Unknown Cannot Verified 05/29/21 13:14 [From Augmentin] Remember bupropion HCl Allergy Unknown Cannot Verified 05/29/21 13:14 [From Wellbutrin] Remember cetirizine HCl [From Zyrtec] Allergy Unknown Cannot Verified 05/29/21 13:14 Remember darifenacin hydrobromide Allergy Unknown Cannot Verified 05/29/21 13:14 [From Enablex] Remember fluticasone propionate Allergy Unknown Cannot Verified 05/29/21 13:14 [From Flonase] Remember lovastatin Allergy Unknown Diarrhea Verified 05/29/21 13:14 metoprolol tartrate Allergy Unknown Diarrhea Verified 05/29/21 13:14 [From Lopressor] paroxetine HCl [From Paxil] Allergy Unknown Cannot Verified 05/29/21 13:14 Remember potassium clavulanate Allergy Unknown Cannot Verified 05/29/21 13:14 [From Augmentin] Remember sertraline HCl [From Zoloft] Allergy Cannot Verified 05/29/21 13:14 Remember simvastatin [From Zocor] Allergy Cannot Verified 05/29/21 13:14 Remember Sulfa (Sulfonamide Allergy Itching Verified 05/29/21 13:14 Antibiotics) venlafaxine HCl Allergy Anxiety Verified 05/29/21 13:14 [From Effexor] verapamil HCl [From Verelan] Allergy Cannot Verified 05/29/21 13:14 Remember arginine Allergy Cannot Uncoded 09/16/17 22:13 Remember Home Medications: Home Meds Rosuvastatin [Crestor] 20 mg PO DAILY 03/11/14 [History] Ubidecarenone [Co Q-10] 200 mg PO BEDTIME 03/11/14 [History] traMADol Hcl/Acetaminophen [Ultracet Tablet] 1 tab PO Q8HR PRN 03/11/14 [History] Aspirin [Halfprin] 81 mg PO BEDTIME 09/16/17 [History] carvediloL [Carvedilol] 6.25 mg PO BID 09/16/17 [History] Methenamine Hippurate [Hiprex] 1 gm PO BID 05/29/21 [History] Nitrofurantoin Monohyd/M-Cryst [Macrobid 100 mg Capsule] 100 mg PO BID 05/29/21 [History] Nitroglycerin 0.4 mg SL ASDIRECTED PRN 05/29/21 [History] Pantoprazole [ProTONIX] 40 mg PO DAILY 05/29/21 [History] Vit A/C/E AC/Znox/Cupric Oxide [Eye Vitamin-Minerals Tablet] 1 each PO Q2D 05/29/21 [History] lisinopriL [Lisinopril] 5 mg PO DAILY 05/29/21 [History] Past Medical History - Past Health History Medical/Surgical History: Denies Medical/Surgical History HEENT History: Reports: Allergic Rhinitis, Hard of Hearing, Impaired Vision, Macular Degeneration, Other (See Below) Other HEENT History: She wears glasses. 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 Dry eye syndrome Cardiovascular History: Reports: Afib, Arrhythmia, Automatic Implantable Cardioverter Defibrillators, Bypass, CAD, Cardiomyopathy, Heart Failure, Heart Murmur, High Cholesterol, Hypertension, VA, Pacemaker, PTCA, Stents, Other (See Below) Other Cardiovascular History: PVCs, borderline incomplete bifascicular bundle branch block, PACs, first-degree AV block, and history of atrial fibrillation. Ischemic cardiomyopathy and large anterior wall acute VA on 06/24/91 with this post PTCA/stent and CABG as below. Mild left atrial enlargement and aortic valve insufficiency by echocardiogram as below Respiratory History: Reports: Asthma, COPD, Intubation, Previous, Sleep Apnea, Other (See Below) Other Respiratory History: History of sleep apnea with patient not able to tolerate CPAP Gastrointestinal History: Reports: Diverticulosis, Fecal Incontinence, Gastritis, GERD, GI Bleed, Hiatal Hernia, PUD, Other (See Below) Other Gastrointestinal History: Moderately large hiatal hernia by CT scan. Possible upper GI bleed Genitourinary History: Reports: Chronic Renal Insuffiency, Urinary Incontinence, Other (See Below) Other Genitourinary History: History of both stress and urinary urge incontinence. 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 Benign ovarian cysts and vag inal polyps Musculoskeletal History: Reports: Arthritis, Back Pain, Chronic, Fracture, Gout, Neck Pain, Chronic, Osteoarthritis, Osteoporosis, Other (See Below) Other Musculoskeletal History: Neck fracture and 2 vertebral fracture in T5 and T11 secondary to severe horse injury on 03/27/13. Left thumb fracture at age 17. Additional T1 and T2 fractures in the past. 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 Additional blood transfusion on 08/03/12 secondary to symptomatic anemia. 3 units in 1995 secondary to tubal Oncologic (Cancer) History: Reports: None Dermatologic History: Reports: None - Infectious Disease History Infectious Disease History: Reports: Chicken Pox, Measles, Mumps, Pertussis (Whooping Cough) - Past Surgical History Head Surgeries/Procedures: Reports: None HEENT Surgical History: Reports: LASIK, Naso-Sinus Surgery, Oral Surgery, Other (See Below) Other HEENT Surgeries/Procedures: Multiple teeth extractions. Septoplasty with bilateral middle and inferior turbinate trimming on 09/18/01. LASIK Cardiovascular Surgical History: Reports: AICD, Coronary Artery Bypass, Coronary Artery Stent, Pacer, Percutaneous Transluminal Angioplasty, Other (See Below) Other Cardiovascular Surgeries/Procedures: PTCA/stent on 06/24/91. CABG 1 of the LAD on 03/29/14. AICDpacemaker placement in 2009 Respiratory Surgical History: Reports: None GI Surgical History: Reports: Colonoscopy, EGD, Other (See Below) Other GI Surgeries/Procedures: Last EGD and colonoscopy in 2013 with previous EGD and colonoscopy on 11/14/05 Female Surgical History: Reports: Section, D&C, Salpingo- Oophorectomy, Other (See Below) Other Female Surgeries/Procedures: on 12/14/69. Left sided salpingo- oophorectomy secondary to tubal in March 1966. D&Cs 2 secondary to dysfunctional uterine bleeding Endocrine Surgical History: Reports: None Neurological Surgical History: Reports: None Oncologic Surgical History: Reports: None Dermatological Surgical History: Reports: None - Past Imaging History Past Imaging History: Reports: Angiography (Heart Catheterization in March 28, 2014), Cardiac Echo (Last echocardiogram on 11/26/16 with ejection fraction of 35-40% with otherwise findings as above with similar findings on previous echocardiogram on 03/25/14), Carotid US (Last on 09/27/14 previous evaluation on ), CAT Scan (CTA of the chest on 03/12/14. CT of the chest on 03/27/13. CT of the lumbar spine on 06/25/10), DEXA Scan (12/11/12), Mammogram (Last mammogram in 2016), Stress Testing (Positive Dobutamine Cardiolite stress test on 03/17/14 with ejection fraction of 32% and subsequent CABG as above. Level cardiac stress test on 05/03/14), Ultrasound (Renal ultrasound on 06/27/10) Social & Family History - Family History HEENT: Reports: Macular Degeneration, Other (See Below) Other HEENT Family History: Mother with macular degeneration Cardiac: Reports: Bypass, CAD, Cardiomyopathy, Heart Failure, High Cholesterol, Hypertension, VA, Stent, Other (See Below) Other Cardiac Family History: Mother with history of CHF and pacemaker at age 86 with fatal CHF and kidney failure at age 88. Mother with VA at age 58 with father having an VA in his 60s with three-vessel CABG. 2 maternal aunts with fatal MIs in their 60s. 2 paternal uncles with fatal MIs with brother having an VA in his 30s. Brother with PTCA in his 50s. Cousin with fatal VA at age 48. Maternal uncle with fatal VA at age 73. Brother with VA and three-vessel CABG at age 48. Hyperlipidemia in parents. Hypertension in mother and brother Respiratory: Reports: None GI: Reports: Cholelithiasis, PUD, Other (See Below) Other GI Family History: Mother and paternal uncle with cholelithiasis. Paternal uncle with peptic ulcer disease with history of abdominal gunshot injury : Reports: Dialysis, Renal Disease/Insufficiency, Other (See Below) Other Family History: Father with fatal CHF and/or kidney failure at age 88 as above. Paternal uncle required dialysis OBGYN: Reports: None Musculoskeletal: Reports: None Neurological: Reports: CVA, TIA, Other (See Below) Other Neurological Family History: Mother with CVA at age 79 and additional his tory of multiple TIAs Psychiatric: Reports: Anxiety, Depression, Psych Hospitalization(s), PTSD, Other (See Below) Other Psychiatric Family History: Father with anxiety depression disorder and paranoid schizophrenia which did require psychiatric hospitalization. Brother with history of PTSD secondary to service. Endocrine/Metabolic: Reports: Diabetes, type II, Hypothyroidism, Other (See Below) Other Endocrine/Metabolic Family History: Paternal aunt with fatal diabetes mellitus in her 60s. 2 maternal uncles, paternal grandmother, and paternal uncle with AODM. Hypothyroidism in sister and mother. Hematologic: Reports: None Immunologic: Reports: None Dermatologic: Reports: None Oncologic: Reports: Colon, Prostate, Other (See Below) Other Oncologic Family History: Maternal aunt with fatal colon cancer at age 79. Father with leukemia. 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 General: Reports: No Symptoms HEENT: Reports: No Symptoms Pulmonary: Reports: Shortness of Breath. Denies: Wheezing, Pleuritic Chest Pain Cardiovascular: Reports: No Symptoms Gastrointestinal: Reports: No Symptoms Genitourinary: Reports: Dysuria Musculoskeletal: Reports: Joint Pain (Shoulder pain) Skin: Reports: No Symptoms Psychiatric: Reports: No Symptoms Neurological: Reports: No Symptoms Hematologic/Lymphatic: Reports: No Symptoms Immunologic: Reports: No Symptoms Exam - Exam Exam: See Below - Vital Signs Vital Signs: Last Vital Signs Temp 98.3 F 05/29/21 02:12 Pulse 94 05/29/21 06:25 Resp 28 H 05/29/21 06:25 BP 109/53 L 05/29/21 06:25 Pulse Ox 99 05/29/21 06:25 Weight: 129 lb - Exam Quality Assessment: Supplemental Oxygen (4 L nasal cannula to keep sats above 92%) General: Alert, Oriented HEENT: Conjunctiva Clear, EOMI Neck: Supple, Trachea Midline Lungs: Decreased Breath Sounds, Wheezing (Mild inspiratory expiratory wheezing bilaterally). No: Normal Respiratory Effort (She is mildly dyspneic at rest. She is able to speak in 4-5 word sentences. Minimal accessory muscle usage), Crackles, Rales, Rhonchi Cardiovascular: Regular Rate, Regular Rhythm GI/Abdominal Exam: Normal Bowel Sounds, Soft, Non-Tender (Female) Exam: Deferred Rectal (Female) Exam: Deferred Back Exam: Normal Inspection, Full Range of Motion Extremities: Normal Inspection, Normal Range of Motion, Non-Tender, No Pedal Edema, Normal Capillary Refill Peripheral Pulses: 2+: Radial (L), Radial (R), Posterior Tibial (L), Posterior Tibial (R), Dorsalis Pedis (L), Dorsalis Pedis (R) Skin: Warm, Dry, Intact Neurological: Reflexes Equal Bilateral Neuro Extensive - Mental Status: Alert, Oriented x3 Psychiatric: Alert, Normal Affect, Normal Mood - Patient Data Lab Results Last 24 hrs: Laboratory Results - last 24 hr 05/29/21 05/29/21 05/29/21 Range/Units 03:34 03:50 03:50 WBC (4.0-10.2) K/uL RBC (3.77-5.09) M/uL Hgb (11.7-15.5) g/dL Hct (34.0-46.0) % MCV (84.0-98.0) fL MCH (28.2-33.3) pg MCHC (31.7-36.0) g/dL RDW (11.2-14.1) % Plt Count (150-350) K/uL Neut % (Auto) (45.0-80.0) % Lymph % (Auto) (10.0-50.0) % Stephenson % (Auto) (2.0-14.0) % Eos % (Auto) (0.0-5.0) % Baso % (Auto) (0.0-2.0) % Neut # (Auto) (1.40-7.00) K/uL Lymph # (Auto) (0.50-3.50) K/uL Stephenson # (Auto) (0.00-1.00) K/uL Eos # (Auto) (0.00-0.50) K/uL Baso # (Auto) (0.00-0.20) K/uL D-Dimer, Quantitative 750 H (0-400) ng/mL VBG pH (7.31-7.41) VBG pCO2 (41-51) mmHG VBG pO2 mmHG VBG HCO3 (23-28) mmol/L VBG Total CO2 mmol/L VBG O2 Saturation % VBG Base Excess ((-2)-3) mmol/L O2 Delivery Device Sodium 147 H (136-145) mmol/L Potassium 3.9 (3.5-5.1) mmol/L Chloride 109 H (98-107) mmol/L Carbon Dioxide 27.9 (21.0-32.0) mmol/L Anion Gap 14.0 (7-15) meq/L BUN 24 H (7-18) mg/dL Creatinine 1.29 H (0.51-1.17) mg/dL Est Cr Clr Drug Dosing 28.43 mL/min Estimated GFR (MDRD) 40 mL/min Glucose 116 H (70-99) mg/dL Lactic Acid (0.4-2.0) mmol/L Calcium 9.2 (8.5-10.1) mg/dL Phosphorus 4.4 (2.6-4.7) mg/dL Magnesium 2.0 (1.8-2.4) mg/dL Total Bilirubin 0.7 (0.2-1.0) mg/dL AST 24 (15-37) U/L ALT 18 (12-78) U/L Alkaline Phosphatase 52 (46-116) IU/L Troponin I High Sens 10 (<=51) ng/L NT-Pro-B Natriuret Pep 877 H (0-125) pg/mL Total Protein 7.0 (6.4-8.2) g/dL Albumin 3.8 (3.4-5.0) g/dL TSH, Ultra Sensitive 12.768 H (0.358-3.740) mIU/mL SARS-CoV-2 RNA (MARILEE) Negative (NEGATIVE) 05/29/21 05/29/21 05/29/21 Range/Units 03:50 03:55 03:55 WBC 8.0 (4.0-10.2) K/uL RBC 4.12 (3.77-5.09) M/uL Hgb 12.4 (11.7-15.5) g/dL Hct 38.8 (34.0-46.0) % MCV 94.2 (84.0-98.0) fL MCH 30.1 (28.2-33.3) pg MCHC 32.0 (31.7-36.0) g/dL RDW 13.2 (11.2-14.1) % Plt Count 153 (150-350) K/uL Neut % (Auto) 90.5 H (45.0-80.0) % Lymph % (Auto) 5.1 L (10.0-50.0) % Stephenson % (Auto) 2.9 (2.0-14.0) % Eos % (Auto) 1.5 (0.0-5.0) % Baso % (Auto) 0.0 (0.0-2.0) % Neut # (Auto) 7.28 H (1.40-7.00) K/uL Lymph # (Auto) 0.41 L (0.50-3.50) K/uL Stephenson # (Auto) 0.23 (0.00-1.00) K/uL Eos # (Auto) 0.12 (0.00-0.50) K/uL Baso # (Auto) 0.00 (0.00-0.20) K/uL D-Dimer, Quantitative (0-400) ng/mL VBG pH 7.29 L (7.31-7.41) VBG pCO2 60 H (41-51) mmHG VBG pO2 29 mmHG VBG HCO3 29 H (23-28) mmol/L VBG Total CO2 29 mmol/L VBG O2 Saturation 47 % VBG Base Excess 1 ((-2)-3) mmol/L O2 Delivery Device Bipap Sodium (136-145) mmol/L Potassium (3.5-5.1) mmol/L Chloride (98-107) mmol/L Carbon Dioxide (21.0-32.0) mmol/L Anion Gap (7-15) meq/L BUN (7-18) mg/dL Creatinine (0.51-1.17) mg/dL Est Cr Clr Drug Dosing mL/min Estimated GFR (MDRD) mL/min Glucose (70-99) mg/dL Lactic Acid 2.2 H (0.4-2.0) mmol/L Calcium (8.5-10.1) mg/dL Phosphorus (2.6-4.7) mg/dL Magnesium (1.8-2.4) mg/dL Total Bilirubin (0.2-1.0) mg/dL AST (15-37) U/L ALT (12-78) U/L Alkaline Phosphatase (46-116) IU/L Troponin I High Sens (<=51) ng/L NT-Pro-B Natriuret Pep (0-125) pg/mL Total Protein (6.4-8.2) g/dL Albumin (3.4-5.0) g/dL TSH, Ultra Sensitive (0.358-3.740) mIU/mL SARS-CoV-2 RNA (MARILEE) (NEGATIVE) Result Diagrams: 05/29/21 03:55 05/29/21 03:50 Angel Results Last 24 hrs: Microbiology 05/29/21 02:38 Influenza Type A Antigen Screen - Final Nasal, Unspecified NEGATIVE INFLUENZA A VIRUS AG REFERENCE RANGE: NEGATIVE Influenza Type B Antigen Screen - Final NEGATIVE INFLUENZA B VIRUS AG REFERENCE RANGE: NEGATIVE Sepsis Event Note - Focused Exam Vital Signs: Vital Signs Temp Pulse Resp BP Pulse Ox 05/29/21 06:25 94 28 H 109/53 L 99 05/29/21 05:48 97 22 H 130/46 L 100 05/29/21 05:11 91 24 H 105/49 L 99 05/29/21 04:45 79 30 H 112/54 L 97 05/29/21 04:31 77 30 H 107/51 L 98 05/29/21 04:15 71 32 H 94/36 L 99 05/29/21 04:00 72 32 H 93/55 L 100 05/29/21 03:45 74 32 H 93/55 L 100 05/29/21 03:30 77 36 H 91/57 L 96 05/29/21 03:15 73 36 H 116/45 L 99 05/29/21 03:00 71 42 H 130/74 100 05/29/21 02:45 72 42 H 125/106 H 98 05/29/21 02:30 74 44 H 120/73 99 05/29/21 02:20 80 48 H 125/66 91 L 05/29/21 02:12 98.3 F 80 32 H 125/66 77 L - Problem List (1) COPD with exacerbation SNOMED Code(s): 722255840 ICD Code: J44.1 - CHRONIC OBSTRUCTIVE PULMONARY DISEASE W (ACUTE) EXACERBATION Status: Acute Current Visit: Yes Problem Details: This patient does have underlying COPD which she is not on any chronic therapy for. Spirometry shows an FEV1 of 0.97 52% of predicted. With an FEV1/FVC ratio of 0.66. I believe that this is most likely the cause of her acute hypoxic hypercapnic respiratory failure. We will do aggressive management as below with budesonide, ipratropium, prednisone. She also be covered with doxycycline for COPD exacerbation. Is also on Rocephin for urinary tract infection. Chest x- ray per radiology no pneumonia (2) Acute respiratory failure with hypoxia and hypercapnia SNOMED Code(s): 980763575 ICD Code: J96.01 - ACUTE RESPIRATORY FAILURE WITH HYPOXIA; J96.02 - ACUTE RESPIRATORY FAILURE WITH HYPERCAPNIA Status: Acute Current Visit: Yes Problem Details: This is due to #1 her COPD exacerbation without chronic management. Oxygen as needed. See #1 for the management of her acute hypoxic hypercapnic respiratory failure. Her hypercapnia has resolved following her BiPAP. We will continue oxygen therapy. (3) Acute renal failure superimposed on stage 3b chronic kidney disease SNOMED Code(s): 872088752 ICD Code: N17.9 - ACUTE KIDNEY FAILURE, UNSPECIFIED; N18.32 - CHRONIC KIDNEY DISEASE, STAGE 3B Status: Acute Current Visit: Yes Problem Details: It appears that her GFR chronically is about 50. Baseline creatinine of 1.1 with a BUN of 20. Creatinine 1.29 BUN 24 with a GFR of 40 today. We will gently hydrate her with fluids as she recently received IV contrast in the emergency department for her PET scan which was negative. (4) Recurrent UTI SNOMED Code(s): 811922608 ICD Code: N39.0 - URINARY TRACT INFECTION, SITE NOT SPECIFIED Status: Acute Current Visit: Yes Problem Details: Patient is currently nitrite positive from her urinalysis completed at the [facility]. She does have recurrent urinary tract infections which appear to be typically E. coli that are falcon sensitive.She is on Hiprex chronically. We will continue this in the hospital. And cover her with Rocephin pending cultures. Sideration of urology follow-up would be appropriate as well upon discharge for recurrent urinary tract infections. (5) Elevated TSH SNOMED Code(s): 228842511 ICD Code: R79.89 - OTHER SPECIFIED ABNORMAL FINDINGS OF BLOOD CHEMISTRY Status: Acute Current Visit: Yes Problem Details: It was noted that her TSH upon admission was 12. Her last TSH 09/13/2020 was 2.84. She will need follow- up in 6 to 8 weeks as this could be due to acute inflammatory process. No management at this time. (6) Pulmonary nodule less than 6 cm determined by computed tomography of lung SNOMED Code(s): 771818143, 830240645 ICD Code: R91.1 - SOLITARY PULMONARY NODULE Status: Acute Current Visit: Yes Problem Details: The CT scan that was completed in the emergency department for concerns of a pulmonary embolism was negative. Although they did find a 6 cm noncalcified nodule lateral aspect of the right middle lobe prominent mediastinal lymph nodes likely reactive. Cholelithiasis upon di gigi we will have her follow-up with the pulmonology nodule clinic at [facility]. Primary care to set up. (7) HTN, Benign hypertension SNOMED Code(s): 88570232 ICD Code: I10 - ESSENTIAL (PRIMARY) HYPERTENSION Status: Chronic Priority: Medium Current Visit: No Problem Details: Blood pressure 92/50. She is asymptomatic with this. This is rather low and concerning for this elderly female to be at home in a risk for a fall. We will hold her lisinopril at this time. Continue her carvedilol (8) SIOMARA (obstructive sleep apnea) SNOMED Code(s): 21578921 ICD Code: G47.33 - OBSTRUCTIVE SLEEP APNEA (ADULT) (PEDIATRIC) Status: Chronic Current Visit: Yes Problem Details: She is not receiving any therapy at home for her obstructive sleep apnea. She will be on oxygen while she is here. Follow-up with pulmonology for consideration of therapy with her COPD as well. (9) Chronic systolic heart failure SNOMED Code(s): 770676715 ICD Code: I50.22 - CHRONIC SYSTOLIC (CONGESTIVE) HEART FAILURE Status: Chronic Current Visit: Yes Problem Details: She has a history of ischemic cardiomyopathy. Her echo completed on 09/19/2020 shows a ejection fraction of 35- 40%. Moderate global hypokinesis of the left ventricle. Apical akinesis. The left ventricular diastolic function is mildly abnormal mild to moderate mitral regurgitation. Mild tricuspid regurgitation. We will hydrate her slowly. Her troponins have been negative. She has no ACS symptoms. Monitor closely. (10) Hypercholesteremia SNOMED Code(s): 59160544 ICD Code: E78.00 - PURE HYPERCHOLESTEROLEMIA, UNSPECIFIED Status: Chronic Current Visit: Yes Problem Details: Stable continue home medications (11) Coronary artery disease SNOMED Code(s): 04061345 ICD Code: I25.10 - ATHSCL HEART DISEASE OF [place] CORONARY ARTERY W/O ANG PCTRS Status: Chronic Priority: High Current Visit: No Problem Details: She does have a history of ischemic cardiomyopathy as well as implantable pacemaker. She has received stents in the past. She has an ejection fraction of approximately 35-40%. No acute coronary syndrome concerns at this time. We will continue her home therapies. Qualifiers: Coronary Disease-Associated Artery/Lesion type: bypass graft [place] vs. transplanted heart: [place] heart Associated angina: with stable angina Qualified Code(s): I25.708 - Atherosclerosis of coronary artery bypass graft(s), unspecified, with other forms of angina pectoris (12) Generalized anxiety disorder SNOMED Code(s): 12927516 ICD Code: F41.1 - GENERALIZED ANXIETY DISORDER Status: Chronic Current Visit: Yes Problem Details: Stable at this time. Continue home Xanax as needed (13) Ischemic cardiomyopathy with implantable cardioverter-defibrillator (ICD) SNOMED Code(s): 358432730 ICD Code: I25.5 - ISCHEMIC CARDIOMYOPATHY; Z95.810 - PRESENCE OF AUTOMATIC (IMPLANTABLE) CARDIAC DEFIBRILLATOR Status: Chronic Current Visit: Yes Problem Details: Monitor telemetry Problem List Initiated/Reviewed/Updated: Yes Orders Last 24hrs: Active Orders 24 hr Category Date Time Status Patient Status [ADT] Routine ADT 05/29/21 06:38 Active EKG Documentation Completion [RC] ASDIRECTED Care 05/29/21 05:09 Active EKG Documentation Completion [RC] ASDIRECTED Care 05/29/21 05:10 Active Peripheral IV Care [RC] . DIRECTED Care 05/29/21 02:24 Active CTA Chest W WO Contrast [Ang Chest] [CT] Stat Exams 05/29/21 04:38 Taken Chest 1V Frontal [CR] Stat Exams 05/29/21 02:23 Taken BLOOD GAS VENOUS [BG] Routine Lab 05/29/21 08:07 Ordered CULTURE BLOOD [BC] Stat Lab 05/29/21 02:24 Ordered CULTURE BLOOD [BC] Stat Lab 05/29/21 03:55 Received INR,PT,PROTHROMBIN TIME [COAG] Stat Lab 05/29/21 02:23 Ordered LACTIC ACID [CHEM] Routine Lab 05/29/21 09:00 Ordered PTT,PARTIAL THROMBOPLSTIN TIME [COAG] Stat Lab 05/29/21 02:24 Ordered TROPONIN I HIGH SENSITIVITY [CHEM] Routine Lab 05/29/21 09:00 Ordered TROPONIN I HIGH SENSITIVITY [CHEM] Stat Lab 05/29/21 08:07 Ordered Sodium Chloride 0.9% [Saline Flush] Med 05/29/21 02:23 Active 10 ml FLUSH ASDIRECTED PRN BiPAP [RESPCARE] Routine Oth 05/29/21 02:25 Active Blood Culture x2 Reflex Set [OM.PC] Stat Oth 05/29/21 02:24 Ordered Isolation [COMM] Routine Oth 05/29/21 02:24 Active Peripheral IV Insertion Adult [OM.PC] Routine Oth 05/29/21 02:24 Ordered Code Status [Resuscitation Status] Routine Resus Stat 05/29/21 07:48 Ordered Medication Orders Sodium Chloride (Sodium Chloride 0.9% 10 Ml Syringe) 10 ml FLUSH ASDIRECTED PRN PRN Reason: Keep Vein Open Last Admin: 05/29/21 02:51 Dose: 10 ml Documented by: [id number] Assessment/Plan Comment:: Assessment/plan. This patient was initially admitted observation but meets inpatient criteria. Due to the below acute and chronic diagnosis. Acute Diagnosis COPD with acute exacerbation. No home therapy FEV1/FVC ratio 0.66 Prednisone 40 mg daily, budesonide 0.5 twice daily, ipratropium 0.5 3 times daily albuterol as needed, doxycycline 100 mg p.o. twice daily. Acute hypoxic Respiratory failure. BiPAP in the emergency department. pH 7.29, PCO2 60, bicarb 29, base excess 1. Repeat couple of hours later pH 7.32, PCO2 55, bicarb 30, base excess 3. Requiring 4 L of oxygen to keep her oxygen saturation above 90%. Repeat venous blood gas in the morning, oxygen keep sats above 90%. See #1. Acute on chronic kidney failure stage IIIb. Baseline creatinine 1.1 GFR 50, admission creatinine 1.29, GFR 40. Lactated Ringer's 100 mils an hour for the acute failure also due to the recent contrast administration in the emergency department following her CTA that was negative for pulmonary emboli Recurrent urinary tract infection Positive nitrites [facility] culture pending. Typically E. coli Rocephin 1 g daily. Follow culture. Continue Hiprex Consider Urology follow up outpatient. Elevated TSH question due to acute illness Baseline 2.84, 12.5 today. Recommend follow-up in the clinic in 6 to 8 weeks as this may be due to acute infectious or inflammatory process. Solitary pulmonary nodule 6 cm. Follow-up outpatient 6 months pulmonary nodule clinic primary care to set up Hypotension in the presence of hypertension. BP 92/50, will hold lisinopril for now. Continue carvedilol monitor BP. Hopefully this will improve with some fluids. Chronic Diagnosis [place] Oxygen prn now. Chronic Systolic HF with reduced ejection fraction. 35-40% No signs of acute exacerbation at this time. Continue carvedilol. Observe closely with the lisinopril help and fluid administration. 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 Carvedilol 6.25 twice daily, hold lisinopril continue aspirin Generalized anxiety disorder. Xanax as needed home medication Ischemic cardiomyopathy Continue home medications as divina. Telemetry Patient will be changed to inpatient status at this time due to the above concerns. I do not feel that this patient will need any more than 2 days of h ospitalization due to the above diagnosis. Unless his situation alters or new symptoms or pathology is found. VTE: Lovenox 40 mg daily. Sepsis: Blood urine cultures pending. Doxycycline Rocephin. CODE STATUS: DNR/DNI. - Mortality Measure Prognosis:: Good
[2021-05-29 09:23] LABS: BICARBONATE,VENOUS 30 mmol/L (23-28); O2 DELIVERY DEVICE NASAL CANNULA; O2 SATURATION VENOUS 61 %; PCO2 VENOUS 55 mmHG (41-51); PH,VENOUS 7.34 (7.31-7.41); PO2 VENOUS 35 mmHG
[2021-05-29 09:24] LABS: BASE EXCESS VENOUS 3 mmol/L ((-2)-3)
[2021-05-29] MEDS: Acetaminophen 325 MG Tab PO PRN (10:31)
[2021-05-29] MEDS ORDERED: [UNRECOGNIZED DRUG - OTHER] PO PRN (11:55)
[2021-05-29] MEDS ORDERED: ACETAMINOPHEN PO PRN (11:55)
[2021-05-29] MEDS ORDERED: TRAMADOL PO PRN (11:55)
[2021-05-29] MEDS ORDERED: Lutein/Minerals/Vitamin C/Vitamin E Acetate Cap PO SCH (12:30)
[2021-05-29] MEDS: predniSONE 20 MG Tab PO SCH (12:40)
[2021-05-29] MEDS: Rosuvastatin 10 MG Tab PO SCH (12:40)
[2021-05-29] MEDS: Carvedilol 6.25 MG Tab PO SCH ×2 (12:41→17:33)
[2021-05-29] MEDS: Doxycycline Monohydrate 100 MG Cap PO SCH ×2 (12:41→19:21)
[2021-05-29] MEDS: Pantoprazole 40 MG Tab.CR PO SCH (12:41)
[2021-05-29] MEDS: Albuterol 0.083% 2.5 MG/3 ML Neb Soln NEB PRN (12:42)
[2021-05-29] MEDS: cefTRIAXone 1 GM in Sodium Chloride 0.9% 100 ML IV SCH (12:42)
[2021-05-29] MEDS: traMADol 50 MG Tab PO PRN (13:05)
[2021-05-29] MEDS: Lactated Ringers 1,000 ML IV SCH (13:26)
[2021-05-29] MEDS: Enoxaparin 40 MG/0.4 ML Syringe SUBCUT SCH (15:51)
[2021-05-29] MEDS: Ipratropium 0.02% 0.5 MG/2.5 ML Neb Soln NEB SCH (15:51)
[2021-05-29] MEDS: Budesonide 0.5 MG/2 ML Neb Susp NEB SCH (19:21)
[2021-05-29] MEDS: Aspirin 81 MG Tab.EC PO SCH (19:21)
[2021-05-30] MEDS: Lactated Ringers 1,000 ML IV SCH ×2 (00:30→12:24)
[2021-05-30] MEDS: Ipratropium 0.02% 0.5 MG/2.5 ML Neb Soln NEB SCH ×3 (00:35→17:05)
[2021-05-30] MEDS: traMADol 50 MG Tab PO PRN ×2 (07:14→13:40)
[2021-05-30 07:26] LABS: O2 DELIVERY DEVICE ROOM AIR
[2021-05-30 07:32] LABS: PCO2 VENOUS 46 mmHG (41-51)
[2021-05-30 07:33] LABS: BASE EXCESS VENOUS 3 mmol/L ((-2)-3); BICARBONATE,VENOUS 29 mmol/L (23-28); O2 SATURATION VENOUS 100 %; PO2 VENOUS 201 mmHG
[2021-05-30 07:43] LABS: ANION GAP 11.3 meq/L (7-15)
[2021-05-30] MEDS ORDERED: Lisinopril 5 MG Tab PO SCH (08:00)
[2021-05-30] MEDS: Carvedilol 6.25 MG Tab PO SCH (10:25)
--- NOTE | 2021-05-30 11:10 | EDM.PDOC ---
ED HPI GENERAL MEDICAL PROBLEM - General Chief Complaint: Respiratory Problem Stated Complaint: Shortness or breath Time Seen by Provider: 05/29/21 02:12 History Limitations: Reports: No Limitations - History of Present Illness INITIAL COMMENTS - FREE TEXT/NARRATIVE: Pt. presents to ER with acute onset shortness of breath, fatigue and chills. She states that the symptoms started just prior to arrival to ER. She was transported to ER via private vehicle. Pt. states that she was seen in [facility] for a UTI today and was started on macrobid. She states that she doctors at [facility] in [facility] typically, but was seen by Alan De Luna in the local [facility] clinic today. Pt. was in extreme respiratory distress on arrival to ER, speaking in 1-2 word sentences. Pt. states that 'everything" is wrong with her heart. According to her med records, she has a history of CAD, ischemic cardiomyopathy, and has a pacemaker/defibrillator. Pt. was brought to ER by her . He really is unable to provide any history events leading up to this, deferring to the patient who is having difficulty communicating due to severe respiratory distress. She was able to walk into ER. She was mildly diaphoretic and ashen. - Related Data Allergies Allergy/AdvReac Type Severity Reaction Status Date / Time amoxicillin trihydrate Allergy Unknown Cannot Verified 05/29/21 13:14 [From Augmentin] Remember bupropion HCl Allergy Unknown Cannot Verified 05/29/21 13:14 [From Wellbutrin] Remember cetirizine HCl [From Zyrtec] Allergy Unknown Cannot Verified 05/29/21 13:14 Remember darifenacin hydrobromide Allergy Unknown Cannot Verified 05/29/21 13:14 [From Enablex] Remember fluticasone propionate Allergy Unknown Cannot Verified 05/29/21 13:14 [From Flonase] Remember lovastatin Allergy Unknown Diarrhea Verified 05/29/21 13:14 metoprolol tartrate Allergy Unknown Diarrhea Verified 05/29/21 13:14 [From Lopressor] paroxetine HCl [From Paxil] Allergy Unknown Cannot Verified 05/29/21 13:14 Remember potassium clavulanate Allergy Unknown Cannot Verified 05/29/21 13:14 [From Augmentin] Remember sertraline HCl [From Zoloft] Allergy Cannot Verified 05/29/21 13:14 Remember simvastatin [From Zocor] Allergy Cannot Verified 05/29/21 13:14 Remember Sulfa (Sulfonamide Allergy Itching Verified 05/29/21 13:14 Antibiotics) venlafaxine HCl Allergy Anxiety Verified 05/29/21 13:14 [From Effexor] verapamil HCl [From Verelan] Allergy Cannot Verified 05/29/21 13:14 Remember arginine Allergy Cannot Uncoded 09/16/17 22:13 Remember Home Meds: Home Meds Rosuvastatin [Crestor] 20 mg PO DAILY 03/11/14 [History] Ubidecarenone [Co Q-10] 200 mg PO BEDTIME 03/11/14 [History] traMADol Hcl/Acetaminophen [Ultracet Tablet] 1 tab PO Q8HR PRN 03/11/14 [History] Aspirin [Halfprin] 81 mg PO BEDTIME 09/16/17 [History] carvediloL [Carvedilol] 6.25 mg PO BID 09/16/17 [History] Methenamine Hippurate [Hiprex] 1 gm PO BID 05/29/21 [History] Nitrofurantoin Monohyd/M-Cryst [Macrobid 100 mg Capsule] 100 mg PO BID 05/29/21 [History] Nitroglycerin 0.4 mg SL ASDIRECTED PRN 05/29/21 [History] Pantoprazole [ProTONIX] 40 mg PO DAILY 05/29/21 [History] Vit A/C/E AC/Znox/Cupric Oxide [Eye Vitamin-Minerals Tablet] 1 each PO Q2D 05/29/21 [History] lisinopriL [Lisinopril] 5 mg PO DAILY 05/29/21 [History] Past Medical History - Past Health History Medical/Surgical History: Denies Medical/Surgical History HEENT History: Reports: Allergic Rhinitis, Hard of Hearing, Impaired Vision, Macular Degeneration, Other (See Below) Other HEENT History: She wears glasses. 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 Dry eye syndrome Cardiovascular History: Reports: Afib, Arrhythmia, Automatic Implantable Cardioverter Defibrillators, Bypass, CAD, Cardiomyopathy, Heart Failure, Heart Murmur, High Cholesterol, Hypertension, MT, Pacemaker, PTCA, Stents, Other (See Below) Other Cardiovascular History: PVCs, borderline incomplete bifascicular bundle branch block, PACs, first-degree AV block, and history of atrial fibrillation. Ischemic cardiomyopathy and large anterior wall acute MT on 06/24/91 with this post PTCA/stent and CABG as below. Mild left atrial enlargement and aortic valve insufficiency by echocardiogram as below Respiratory History: Reports: Asthma, COPD, Intubation, Previous, Sleep Apnea, Other (See Below) Other Respiratory History: History of sleep apnea with patient not able to tolerate CPAP Gastrointestinal History: Reports: Diverticulosis, Fecal Incontinence, Gastritis, GERD, GI Bleed, Hiatal Hernia, PUD, Other (See Below) Other Gastrointestinal History: Moderately large hiatal hernia by CT scan. Possible upper GI bleed Genitourinary History: Reports: Chronic Renal Insuffiency, Urinary Incontinence, Other (See Below) Other Genitourinary History: History of both stress and urinary urge incontinence. History of mild proteinuria LEGAL SUPPORT MANAGER History: Reports: Dysfunctional Uterine Bleeding, Ectopic , Other LEGAL SUPPORT MANAGER History: Menopause in her early 50s. Benign ovarian cysts and vaginal polyps Musculoskeletal History: Reports: Arthritis, Back Pain, Chronic, Fracture, Gout, Neck Pain, Chronic, Osteoarthritis, Osteoporosis, Other (See Below) Other Musculoskeletal History: Neck fracture and 2 vertebral fracture in T5 and T11 secondary to severe horse injury on 03/27/13. Left thumb fracture at age 17. Additional T1 and T2 fractures in the past. 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 Additional blood transfusion on 08/03/12 secondary to symptomatic anemia. 3 units in 1995 secondary to tubal Oncologic (Cancer) History: Reports: None Dermatologic History: Reports: None - Infectious Disease History Infectious Disease History: Reports: Chicken Pox, Measles, Mumps, Pertussis (Whooping Cough) - Past Surgical History Head Surgeries/Procedures: Reports: None HEENT Surgical History: Reports: LASIK, Naso-Sinus Surgery, Oral Surgery, Other (See Below) Other HEENT Surgeries/Procedures: Multiple teeth extractions. Septoplasty with bilateral middle and inferior turbinate trimming on 09/18/01. JAMIE Cardiovascular Surgical History: Reports: AICD, Coronary Artery Bypass, Coronary Artery Stent, Pacer, Percutaneous Transluminal Angioplasty, Other (See Below) Other Cardiovascular Surgeries/Procedures: PTCA/stent on 06/24/91. CABG 1 of the LAD on 03/29/14. AICDpacemaker placement in 2009 Respiratory Surgical History: Reports: None GI Surgical History: Reports: Colonoscopy, EGD, Other (See Below) Other GI Surgeries/Procedures: Last EGD and colonoscopy in 2013 with previous EGD and colonoscopy on 11/14/05 Female Surgical History: Reports: Section, D&C, Salpingo- Oophorectomy, Other (See Below) Other Female Surgeries/Procedures: on 12/14/69. Left sided salpingo- oophorectomy secondary to tubal in March 1966. D&Cs 2 secondary to dysfunctional uterine bleeding Endocrine Surgical History: Reports: None Neurological Surgical History: Reports: None Oncologic Surgical History: Reports: None Dermatological Surgical History: Reports: None - Past Imaging History Past Imaging History: Reports: Angiography (Heart Catheterization in March 28, 2014), Cardiac Echo (Last echocardiogram on 11/26/16 with ejection fraction of 35-40% with otherwise findings as above with similar findings on previous echocardiogram on 03/25/14), Carotid US (Last on 09/27/14 previous evaluation on ), CAT Scan (CTA of the chest on 03/12/14. CT of the chest on 03/27/13. CT of the lumbar spine on 06/25/10), DEXA Scan (12/11/12), Mammogram (Last mammogram in 2016), Stress Testing (Positive Dobutamine Cardiolite stress test on 03/17/14 with ejection fraction of 32% and subsequent CABG as above. Level cardiac stress test on 05/03/14), Ultrasound (Renal ultrasound on 06/27/10) Social & Family History - Family History HEENT: Reports: Macular Degeneration, Other (See Below) Other HEENT Family History: Mother with macular degeneration Cardiac: Reports: Bypass, CAD, Cardiomyopathy, Heart Failure, High Cholesterol, Hypertension, MT, Stent, Other (See Below) Other Cardiac Family History: Mother with history of CHF and pacemaker at age 86 with fatal CHF and kidney failure at age 88. Mother with MT at age 58 with father having an MT in his 60s with three-vessel CABG. 2 maternal aunts with fatal MIs in their 60s. 2 paternal uncles with fatal MIs with brother having an MT in his 30s. Brother with PTCA in his 50s. Cousin with fatal MT at age 48. Maternal uncle with fatal MT at age 73. Brother with MT and three-vessel CABG at age 48. Hyperlipidemia in parents. Hypertension in mother and brother Respiratory: Reports: None GI: Reports: Cholelithiasis, PUD, Other (See Below) Other GI Family History: Mother and paternal uncle with cholelithiasis. Paternal uncle with peptic ulcer disease with history of abdominal gunshot injury : Reports: Dialysis, Renal Disease/Insufficiency, Other (See Below) Other Family History: Father with fatal CHF and/or kidney failure at age 88 as above. Paternal uncle required dialysis OBGYN: Reports: None Musculoskeletal: Reports: None Neurological: Reports: CVA, TIA, Other (See Below) Other Neurological Family History: Mother with CVA at age 79 and additional history of multiple TIAs Psychiatric: Reports: Anxiety, Depression, Psych Hospitalization(s), PTSD, Other (See Below) Other Psychiatric Family History: Father with anxiety depression disorder and paranoid schizophrenia which did require psychiatric hospitalization. Brother with history of PTSD secondary to service. Endocrine/Metabolic: Reports: Diabetes, type II, Hypothyroidism, Other (See Below) Other Endocrine/Metabolic Family History: Paternal aunt with fatal diabetes mellitus in her 60s. 2 maternal uncles, paternal grandmother, and paternal uncle with AODM. Hypothyroidism in sister and mother. Hematologic: Reports: None Immunologic: Reports: None Dermatologic: Reports: None Oncologic: Reports: Colon, Prostate, Other (See Below) Other Oncologic Family History: Maternal aunt with fatal colon cancer at age 79. Father with leukemia. 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 presents to ER with acute onset shortness of breath, fatigue and chills. She states that the symptoms started just prior to arrival to ER. She was transported to ER via private vehicle. Pt. states that she was seen in [facility] for a UTI today and was started on macrobid. She states that she doctors at [facility] in [facility] typically, but was seen by Alan De Luna in the local [facility] clinic today. Pt. was in extreme respiratory distress on arrival to ER, speaking in 1-2 word sentences. Pt. states that 'everything" is wrong with her heart. According to her med records, she has a history of CAD, ischemic cardiomyopathy, and has a pacemaker/defibrillator. Pt. was brought to ER by her . He really is unable to provide any history events leading up to this, deferring to the patient who is having difficulty communicating due to severe respiratory distress. She was able to walk into ER. She was mildly diaphoretic and ashen. Exam Limited By: Respiratory Distress General Appearance: Alert, Anxious Nose: Normal Inspection, No Blood Throat/Mouth: Normal Inspection, Normal Lips, Normal Oropharynx, Normal Voice, No Airway Compromise Head: Atraumatic, Normocephalic Neck: Normal Inspection, Supple, Non-Tender Respiratory/Chest: Decreased Breath Sounds, Crackles Cardiovascular: Normal Peripheral Pulses, Regular Rate, Rhythm, No Edema, No JVD Peripheral Pulses: 2+: Radial (L), Radial (R), Posterior Tibial (L), Posterior Tibial (R), Dorsalis Pedis (L), Dorsalis Pedis (R) GI/Abdominal: Normal Bowel Sounds, Soft, Non-Tender Back Exam: Normal Inspection, Full Range of Motion Extremities: Normal Inspection, Normal Range of Motion, Non-Tender, No Pedal Edema, Normal Capillary Refill Neurological: Alert, Oriented, CN II-XII Intact, Normal Cognition, Normal Gait, No Motor/Sensory Deficits Psychiatric: Normal Affect, Normal Mood Skin Exam: Warm, Intact, No Rash, Diaphoretic, Pallor (ashen,) #1 Interpretation Rhythm: NSR QRS: LBBB Course - Vital Signs Last Recorded V/S: Last Vital Signs Temp 35.8 C L 05/30/21 04:00 Pulse 85 05/30/21 04:00 Resp 12 05/30/21 04:00 BP 94/42 L 05/30/21 04:00 Pulse Ox 92 L 05/30/21 04:00 - Orders/Labs/Meds Orders: Medication Orders Acetaminophen (Acetaminophen 325 Mg Tab) 650 mg PO Q6H PRN PRN Reason: Pain (mild 1-3) Last Admin: 05/29/21 10:31 Dose: 650 mg Documented by: LEVOBRO Albuterol (Albuterol 0.083% 2.5 Mg/3 Ml Neb Soln) 2.5 mg NEB Q4HRRT PRN PRN Reason: Shortness of Breath Last Admin: 05/29/21 12:42 Dose: 2.5 mg Documented by: LEVOBRO Aspirin (Aspirin 81 Mg Tab.Ec) 81 mg PO BEDTIME [facility] Last Admin: 05/29/21 19:21 Dose: 81 mg Documented by: LEVOBRO Budesonide (Budesonide 0.5 Mg/2 Ml Neb Susp) 0.5 mg NEB BIDRT [facility] Last Admin: 05/29/21 19:21 Dose: 0.5 mg Documented by: LEVOBRO Coenzyme Q10 (Ubidecarenone 100 Mg Cap) 200 mg PO BEDTIME [facility] Last Admin: 05/29/21 19:20 Dose: 200 mg Documented by: LEVOBRO Doxycycline Monohydrate (Doxycycline Monohydrate 100 Mg Cap) 100 mg PO Q12HR [facility] Last Admin: 05/29/21 19:21 Dose: 100 mg Documented by: Admin: 05/29/21 12:41 Dose: 100 mg Documented by: LEVOBRO Enoxaparin Sodium (Enoxaparin 40 Mg/0.4 Ml Syringe) 40 mg SUBCUT DAILY [facility] Last Admin: 05/29/21 15:51 Dose: 40 mg Documented by: LEVOBRO Ceftriaxone Sodium 1 gm/ (Sodium Chloride) 100 mls @ 200 mls/hr IV Q24H [facility] Last Admin: 05/29/21 12:42 Dose: 200 mls/hr Documented by: LEVOBRO Ipratropium [place] (Ipratropium 0.02% 0.5 Mg/2.5 Ml Neb Soln) 0.5 mg NEB Q8HRRT [facility] Last Admin: 05/30/21 00:35 Dose: 0.5 mg Documented by: Admin: 05/29/21 15:51 Dose: 0.5 mg Documented by: BUTCH Methenamine Hippurate (Methenamine Hippurate 1 Gm Tab) 1 gm PO BID [facility] Last Admin: 05/29/21 17:30 Dose: 1 gm Documented by: Admin: 05/29/21 12:41 Dose: 1 gm Documented by: BUTCH Pantoprazole Sodium (Pantoprazole 40 Mg Tab.Cr) 40 mg PO DAILY [facility] Last Admin: 05/29/21 12:41 Dose: 40 mg Documented by: BUTCH Prednisone (Prednisone 20 Mg Tab) 40 mg PO DAILY [facility] Last Admin: 05/29/21 12:40 Dose: 40 mg Documented by: BUTCH Rosuvastatin Calcium (Rosuvastatin 10 Mg Tab) 20 mg PO DAILY [facility] Last Admin: 05/29/21 12:40 Dose: 20 mg Documented by: BUTCH Sodium Chloride (Sodium Chloride 0.9% 10 Ml Syringe) 10 ml FLUSH ASDIRECTED PRN PRN Reason: Keep Vein Open Last Admin: 05/29/21 02:51 Dose: 10 ml Documented by: [id number] Tramadol HCl (Tramadol 50 Mg Tab) 25 mg PO Q8H PRN PRN Reason: PAIN Last Admin: 05/30/21 07:14 Dose: 25 mg Documented by: Admin: 05/29/21 13:05 Dose: 25 mg Documented by: BUTCH Vit C/Vit E/Zinc/Copper/Lutein (Lutein/Minerals/Vitamin C/Vitamin E Acetate Cap) 1 each PO Q2D [facility] Last Admin: 05/29/21 13:05 Dose: 1 each Documented by: BUTCH Labs: Laboratory Tests 05/29/21 05/29/21 05/29/21 Range/Units 03:34 03:50 03:50 WBC (4.0-10.2) K/uL RBC (3.77-5.09) M/uL Hgb (11.7-15.5) g/dL Hct (34.0-46.0) % MCV (84.0-98.0) fL MCH (28.2-33.3) pg MCHC (31.7-36.0) g/dL RDW (11.2-14.1) % Plt Count (150-350) K/uL Neut % (Auto) (45.0-80.0) % Lymph % (Auto) (10.0-50.0) % [place] % (Auto) (2.0-14.0) % Eos % (Auto) (0.0-5.0) % Baso % (Auto) (0.0-2.0) % Neut # (Auto) (1.40-7.00) K/uL Lymph # (Auto) (0.50-3.50) K/uL [place] # (Auto) (0.00-1.00) K/uL Eos # (Auto) (0.00-0.50) K/uL Baso # (Auto) (0.00-0.20) K/uL D-Dimer, Quantitative 750 H (0-400) ng/mL VBG pH (7.31-7.41) VBG pCO2 (41-51) mmHG VBG pO2 mmHG VBG HCO3 (23-28) mmol/L VBG Total CO2 mmol/L VBG O2 Saturation % VBG Base Excess ((-2)-3) mmol/L O2 Delivery Device Sodium 147 H (136-145) mmol/L Potassium 3.9 (3.5-5.1) mmol/L Chloride 109 H (98-107) mmol/L Carbon Dioxide 27.9 (21.0-32.0) mmol/L Anion Gap 14.0 (7-15) meq/L BUN 24 H (7-18) mg/dL Creatinine 1.29 H (0.51-1.17) mg/dL Est Cr Clr Drug Dosing 28.43 mL/min Estimated GFR (MDRD) 40 mL/min Glucose 116 H (70-99) mg/dL Lactic Acid (0.4-2.0) mmol/L Calcium 9.2 (8.5-10.1) mg/dL Phosphorus 4.4 (2.6-4.7) mg/dL Magnesium 2.0 (1.8-2.4) mg/dL Total Bilirubin 0.7 (0.2-1.0) mg/dL AST 24 (15-37) U/L ALT 18 (12-78) U/L Alkaline Phosphatase 52 (46-116) IU/L Troponin I High Sens 10 (<=51) ng/L NT-Pro-B Natriuret Pep 877 H (0-125) pg/mL Total Protein 7.0 (6.4-8.2) g/dL Albumin 3.8 (3.4-5.0) g/dL TSH, Ultra Sensitive 12.768 H (0.358-3.740) mIU/mL SARS-CoV-2 RNA (MARILEE) Negative (NEGATIVE) 05/29/21 05/29/21 05/29/21 Range/Units 03:50 03:55 03:55 WBC 8.0 (4.0-10.2) K/uL RBC 4.12 (3.77-5.09) M/uL Hgb 12.4 (11.7-15.5) g/dL Hct 38.8 (34.0-46.0) % MCV 94.2 (84.0-98.0) fL MCH 30.1 (28.2-33.3) pg MCHC 32.0 (31.7-36.0) g/dL RDW 13.2 (11.2-14.1) % Plt Count 153 (150-350) K/uL Neut % (Auto) 90.5 H (45.0-80.0) % Lymph % (Auto) 5.1 L (10.0-50.0) % [place] % (Auto) 2.9 (2.0-14.0) % Eos % (Auto) 1.5 (0.0-5.0) % Baso % (Auto) 0.0 (0.0-2.0) % Neut # (Auto) 7.28 H (1.40-7.00) K/uL Lymph # (Auto) 0.41 L (0.50-3.50) K/uL [place] # (Auto) 0.23 (0.00-1.00) K/uL Eos # (Auto) 0.12 (0.00-0.50) K/uL Baso # (Auto) 0.00 (0.00-0.20) K/uL D-Dimer, Quantitative (0-400) ng/mL VBG pH 7.29 L (7.31-7.41) VBG pCO2 60 H (41-51) mmHG VBG pO2 29 mmHG VBG HCO3 29 H (23-28) mmol/L VBG Total CO2 29 mmol/L VBG O2 Saturation 47 % VBG Base Excess 1 ((-2)-3) mmol/L O2 Delivery Device Bipap Sodium (136-145) mmol/L Potassium (3.5-5.1) mmol/L Chloride (98-107) mmol/L Carbon Dioxide (21.0-32.0) mmol/L Anion Gap (7-15) meq/L BUN (7-18) mg/dL Creatinine (0.51-1.17) mg/dL Est Cr Clr Drug Dosing mL/min Estimated GFR (MDRD) mL/min Glucose (70-99) mg/dL Lactic Acid 2.2 H (0.4-2.0) mmol/L Calcium (8.5-10.1) mg/dL Phosphorus (2.6-4.7) mg/dL Magnesium (1.8-2.4) mg/dL Total Bilirubin (0.2-1.0) mg/dL AST (15-37) U/L ALT (12-78) U/L Alkaline Phosphatase (46-116) IU/L Troponin I High Sens (<=51) ng/L NT-Pro-B Natriuret Pep (0-125) pg/mL Total Protein (6.4-8.2) g/dL Albumin (3.4-5.0) g/dL TSH, Ultra Sensitive (0.358-3.740) mIU/mL SARS-CoV-2 RNA (MARILEE) (NEGATIVE) Meds: Medications Generic Name Dose Route Start Last Admin Trade Name Freq PRN Reason Stop Dose Admin Acetaminophen 650 mg 05/29/21 10:00 05/29/21 10:31 Acetaminophen 325 Mg Tab PO 650 mg Q6H PRN Administration Pain (mild 1-3) Albuterol 2.5 mg 05/29/21 12:09 05/29/21 12:42 Albuterol 0.083% 2.5 Mg/3 Ml Neb Soln NEB 2.5 mg Q4HRRT PRN Administration Shortness of Breath Aspirin 81 mg 05/29/21 20:00 05/29/21 19:21 Aspirin 81 Mg Tab.Ec PO 81 mg BEDTIME RONALD Administration Budesonide 0.5 mg 05/29/21 20:00 05/29/21 19:21 Budesonide 0.5 Mg/2 Ml Neb Susp NEB 0.5 mg BIDRT RONALD Administration Coenzyme Q10 200 mg 05/29/21 20:00 05/29/21 19:20 Ubidecarenone 100 Mg Cap PO 200 mg BEDTIME RONALD Administration Doxycycline Monohydrate 100 mg 05/29/21 12:15 05/29/21 19:21 Doxycycline Monohydrate 100 Mg Cap PO 100 mg Q12HR RONALD Administration Enoxaparin Sodium 40 mg 05/29/21 14:15 05/29/21 15:51 Enoxaparin 40 Mg/0.4 Ml Syringe SUBCUT 40 mg DAILY RONALD Administration Ceftriaxone Sodium 1 gm/ 100 mls @ 200 mls/hr 05/29/21 12:00 05/29/21 12:42 Sodium Chloride IV 200 mls/hr Q24H RONALD Administration Ipratropium [place] 0.5 mg 05/29/21 16:00 05/30/21 00:35 Ipratropium 0.02% 0.5 Mg/2.5 Ml Neb Soln NEB 0.5 mg Q8HRRT RONALD Administration Methenamine Hippurate 1 gm 05/29/21 12:00 05/29/21 17:30 Methenamine Hippurate 1 Gm Tab PO 1 gm BID RONALD Administration Pantoprazole Sodium 40 mg 05/29/21 12:00 05/29/21 12:41 Pantoprazole 40 Mg Tab.Cr PO 40 mg DAILY RONALD Administration Prednisone 40 mg 05/29/21 12:15 05/29/21 12:40 Prednisone 20 Mg Tab PO 40 mg DAILY RONALD Administration Rosuvastatin Calcium 20 mg 05/29/21 12:00 05/29/21 12:40 Rosuvastatin 10 Mg Tab PO 20 mg DAILY RONALD Administration Sodium Chloride 10 ml 05/29/21 02:23 05/29/21 02:51 Sodium Chloride 0.9% 10 Ml Syringe FLUSH 10 ml ASDIRECTED PRN Administration Keep Vein Open Tramadol HCl 25 mg 05/29/21 12:30 05/30/21 07:14 Tramadol 50 Mg Tab PO 25 mg Q8H PRN Administration PAIN Vit C/Vit E/Zinc/Copper/Lutein 1 each 05/29/21 12:30 05/29/21 13:05 Lutein/Minerals/Vitamin C/Vitamin E Acetate Cap PO 1 each Q2D RONALD Administration Discontinued Medications Generic Name Dose Route Start Last Admin Trade Name Roxanne PRN Reason Stop Dose Admin Carvedilol 6.25 mg 05/29/21 12:00 05/30/21 10:25 Carvedilol 6.25 Mg Tab PO Not Given BID RONALD Furosemide 40 mg 05/29/21 02:45 05/29/21 02:50 Furosemide 40 Mg/4 Ml Vial IVPUSH 40 mg DAILY RONALD Administration Lactated Ringer's 1,000 mls @ 100 mls/hr 05/29/21 13:15 05/30/21 00:30 Ringers, Lactated IV 100 mls/hr ASDIRECTED RONALD Administration Iopamidol 100 ml 05/29/21 05:01 05/29/21 05:46 Iopamidol 755 Mg/Ml 100 Ml Bottle IVPUSH 05/29/21 05:02 100 ml ONETIME STA Administration Lisinopril 5 mg 05/30/21 08:00 Lisinopril 5 Mg Tab PO DAILY RONALD Ondansetron HCl 4 mg 05/29/21 03:17 05/29/21 03:21 Ondansetron 4 Mg/2 Ml Sdv IVPUSH 05/29/21 03:18 4 mg ONETIME ONE Administration - Radiology Interpretation Free Text/Narrative:: CTA chest negative for PE or infectious process. - Re-Assessments/Exams Free Text/Narrative Re-Assessment/Exam: Pt. initially was placed on O2 per NC. Initial O2 sat in the 70s. Pt. was then placed on BiPAP (15/5). O2 sat rapidly improved at was at 100% on 40% O2. She was given lasix 40mg IV. Departure - Departure Time of Disposition: 07:30 Disposition: Refer to Observation Clinical Impression: Dyspnea, Lactic acidosis - Discharge Information Sepsis Event Note (ED) - Evaluation Sepsis Screening Result: No Definite Risk - Problem List Review Problem List Initiated/Reviewed/Updated: Yes - Assessment/Plan Plan: Pt. admitted observation. Pt. is a code 1. Please refer to admission H and P.
--- NOTE | 2021-05-30 11:17 | PCM.PN ---
- General Info Date of Service: 05/30/21 Admission Dx/Problem (Free Text): Pt. states breathing has continued to improve. She is now on O2 per NC and O2 saturation is the mid 90s. Pt. was noted to be hypotensive yesterday. Today, her blood pressures are in the low 100s systolic over 20-30 diastolic. She as given IV LR overnight. She denies any lightheadedness or weakness. No chest pain or new shortness of breath. She has been able to ambulate. Pt. currently receiving oral prednisone 40mg daily as well as IV rocephin and doxycycline. Again, her CTA of chest was negative for acute pathology. She has been afebrile since admission with Tmax since admission of 36.8. Denies any nausea or vomiting. EKG appears unchanged from 2018. Troponin has been trended and is still within normal limits. She denies any chills. Blood gases have improved. She does have a white count this AM of 17,700. Functional Status: Reports: Pain Controlled - Review of Systems General: Reports: No Symptoms HEENT: Reports: No Symptoms Pulmonary: Reports: No Symptoms Cardiovascular: Reports: No Symptoms. Denies: Chest Pain, Orthopnea, PND, Edema, Lightheadedness Gastrointestinal: Reports: No Symptoms Genitourinary: Reports: No Symptoms Musculoskeletal: Reports: No Symptoms Skin: Reports: No Symptoms Neurological: Reports: No Symptoms Psychiatric: Reports: No Symptoms - Patient Data Vitals - Most Recent: Last Vital Signs Temp 35.8 C L 05/30/21 04:00 Pulse 85 05/30/21 04:00 Resp 12 05/30/21 04:00 BP 94/42 L 05/30/21 04:00 Pulse Ox 92 L 05/30/21 04:00 Weight - Most Recent: 57.334 kg I&O - Last 24 Hours: Intake & Output 05/29/21 05/30/21 05/30/21 22:59 06:59 14:59 Intake Total 480 1300 Balance 480 1300 Lab Results Last 24 Hours: Laboratory Results - last 24 hr 05/30/21 05/30/21 05/30/21 Range/Units 07:10 07:10 07:10 WBC 17.7 H (4.0-10.2) K/uL RBC 3.33 L (3.77-5.09) M/uL Hgb 10.1 L D (11.7-15.5) g/dL Hct 31.3 L (34.0-46.0) % MCV 94.0 (84.0-98.0) fL MCH 30.3 (28.2-33.3) pg MCHC 32.3 (31.7-36.0) g/dL RDW 13.4 (11.2-14.1) % Plt Count 161 (150-350) K/uL Neut % (Auto) 92.0 H (45.0-80.0) % Lymph % (Auto) 3.9 L (10.0-50.0) % [place] % (Auto) 4.1 (2.0-14.0) % Eos % (Auto) 0.0 (0.0-5.0) % Baso % (Auto) 0.0 (0.0-2.0) % Neut # (Auto) 16.24 H (1.40-7.00) K/uL Lymph # (Auto) 0.69 (0.50-3.50) K/uL [place] # (Auto) 0.73 (0.00-1.00) K/uL Eos # (Auto) 0.00 (0.00-0.50) K/uL Baso # (Auto) 0.00 (0.00-0.20) K/uL VBG pH 7.40 (7.31-7.41) VBG pCO2 46 (41-51) mmHG VBG pO2 201 mmHG VBG HCO3 29 H (23-28) mmol/L VBG Total CO2 29 mmol/L VBG O2 Saturation 100 % VBG Base Excess 3 ((-2)-3) mmol/L O2 Delivery Device Room air Sodium 143 (136-145) mmol/L Potassium 4.0 (3.5-5.1) mmol/L Chloride 108 H (98-107) mmol/L Carbon Dioxide 27.7 (21.0-32.0) mmol/L Anion Gap 11.3 (7-15) meq/L BUN 26 H (7-18) mg/dL Creatinine 1.01 (0.51-1.17) mg/dL Est Cr Clr Drug Dosing 36.32 mL/min Estimated GFR (MDRD) 53 mL/min Glucose 126 H (70-99) mg/dL Calcium 8.8 (8.5-10.1) mg/dL Troponin I High Sens (<=51) ng/L C-Reactive Protein 18.0 H (<=0.9) mg/dL 05/30/21 Range/Units 09:24 WBC (4.0-10.2) K/uL RBC (3.77-5.09) M/uL Hgb (11.7-15.5) g/dL Hct (34.0-46.0) % MCV (84.0-98.0) fL MCH (28.2-33.3) pg MCHC (31.7-36.0) g/dL RDW (11.2-14.1) % Plt Count (150-350) K/uL Neut % (Auto) (45.0-80.0) % Lymph % (Auto) (10.0-50.0) % [place] % (Auto) (2.0-14.0) % Eos % (Auto) (0.0-5.0) % Baso % (Auto) (0.0-2.0) % Neut # (Auto) (1.40-7.00) K/uL Lymph # (Auto) (0.50-3.50) K/uL [place] # (Auto) (0.00-1.00) K/uL Eos # (Auto) (0.00-0.50) K/uL Baso # (Auto) (0.00-0.20) K/uL VBG pH (7.31-7.41) VBG pCO2 (41-51) mmHG VBG pO2 mmHG VBG HCO3 (23-28) mmol/L VBG Total CO2 mmol/L VBG O2 Saturation % VBG Base Excess ((-2)-3) mmol/L O2 Delivery Device Sodium (136-145) mmol/L Potassium (3.5-5.1) mmol/L Chloride (98-107) mmol/L Carbon Dioxide (21.0-32.0) mmol/L Anion Gap (7-15) meq/L BUN (7-18) mg/dL Creatinine (0.51-1.17) mg/dL Est Cr Clr Drug Dosing mL/min Estimated GFR (MDRD) mL/min Glucose (70-99) mg/dL Calcium (8.5-10.1) mg/dL Troponin I High Sens 11 (<=51) ng/L C-Reactive Protein (<=0.9) mg/dL Angel Results Last 24 Hours: Microbiology 05/29/21 09:10 Aerobic Blood Culture - Preliminary Blood - Venous - Lab Draw NO GROWTH AFTER 1 DAY Anaerobic Blood Culture - Preliminary NO GROWTH AFTER 1 DAY 05/29/21 03:55 Aerobic Blood Culture - Preliminary Blood - Venous NO GROWTH AFTER 1 DAY Anaerobic Blood Culture - Preliminary NO GROWTH AFTER 1 DAY Med Orders - Current: Current Medications Acetaminophen (Acetaminophen 325 Mg Tab) 650 mg PO Q6H PRN PRN Reason: Pain (mild 1-3) Last Admin: 05/29/21 10:31 Dose: 650 mg Documented by: Albuterol (Albuterol 0.083% 2.5 Mg/3 Ml Neb Soln) 2.5 mg NEB Q4HRRT PRN PRN Reason: Shortness of Breath Last Admin: 05/29/21 12:42 Dose: 2.5 mg Documented by: Aspirin (Aspirin 81 Mg Tab.Ec) 81 mg PO BEDTIME [facility] Last Admin: 05/29/21 19:21 Dose: 81 mg Documented by: Budesonide (Budesonide 0.5 Mg/2 Ml Neb Susp) 0.5 mg NEB BIDRT [facility] Last Admin: 05/29/21 19:21 Dose: 0.5 mg Documented by: Coenzyme Q10 (Ubidecarenone 100 Mg Cap) 200 mg PO BEDTIME [facility] Last Admin: 05/29/21 19:20 Dose: 200 mg Documented by: Doxycycline Monohydrate (Doxycycline Monohydrate 100 Mg Cap) 100 mg PO Q12HR [facility] Last Admin: 05/29/21 19:21 Dose: 100 mg Documented by: Enoxaparin Sodium (Enoxaparin 40 Mg/0.4 Ml Syringe) 40 mg SUBCUT DAILY [facility] Last Admin: 05/29/21 15:51 Dose: 40 mg Documented by: Ceftriaxone Sodium 1 gm/ (Sodium Chloride) 100 mls @ 200 mls/hr IV Q24H [facility] Last Admin: 05/29/21 12:42 Dose: 200 mls/hr Documented by: Ipratropium Kendall (Ipratropium 0.02% 0.5 Mg/2.5 Ml Neb Soln) 0.5 mg NEB Q8HRRT [facility] Last Admin: 05/30/21 00:35 Dose: 0.5 mg Documented by: Methenamine Hippurate (Methenamine Hippurate 1 Gm Tab) 1 gm PO BID [facility] Last Admin: 05/29/21 17:30 Dose: 1 gm Documented by: Pantoprazole Sodium (Pantoprazole 40 Mg Tab.Cr) 40 mg PO DAILY [facility] Last Admin: 05/29/21 12:41 Dose: 40 mg Documented by: Prednisone (Prednisone 20 Mg Tab) 40 mg PO DAILY [facility] Last Admin: 05/29/21 12:40 Dose: 40 mg Documented by: Rosuvastatin Calcium (Rosuvastatin 10 Mg Tab) 20 mg PO DAILY [facility] Last Admin: 05/29/21 12:40 Dose: 20 mg Documented by: Sodium Chloride (Sodium Chloride 0.9% 10 Ml Syringe) 10 ml FLUSH ASDIRECTED PRN PRN Reason: Keep Vein Open Last Admin: 05/29/21 02:51 Dose: 10 ml Documented by: Tramadol HCl (Tramadol 50 Mg Tab) 25 mg PO Q8H PRN PRN Reason: PAIN Last Admin: 05/30/21 07:14 Dose: 25 mg Documented by: Vit C/Vit E/Zinc/Copper/Lutein (Lutein/Minerals/Vitamin C/Vitamin E Acetate Cap) 1 each PO Q2D [facility] Last Admin: 05/29/21 13:05 Dose: 1 each Documented by: Discontinued Medications Carvedilol (Carvedilol 6.25 Mg Tab) 6.25 mg PO BID [facility] Last Admin: 05/30/21 10:25 Dose: Not Given Documented by: Furosemide (Furosemide 40 Mg/4 Ml Vial) 40 mg IVPUSH DAILY [facility] Last Admin: 05/29/21 02:50 Dose: 40 mg Documented by: Lactated Ringer's (Ringers, Lactated) 1,000 mls @ 100 mls/hr IV ASDIRECTED [facility] Last Admin: 05/30/21 00:30 Dose: 100 mls/hr Documented by: Iopamidol (Iopamidol 755 Mg/Ml 100 Ml Bottle) 100 ml IVPUSH ONETIME STA Stop: 05/29/21 05:02 Last Admin: 05/29/21 05:46 Dose: 100 ml Documented by: Lisinopril (Lisinopril 5 Mg Tab) 5 mg PO DAILY [facility] Ondansetron HCl (Ondansetron 4 Mg/2 Ml Sdv) 4 mg IVPUSH ONETIME ONE Stop: 05/29/21 03:18 Last Admin: 05/29/21 03:21 Dose: 4 mg Documented by: - Exam Quality Assessment: Supplemental Oxygen General: Alert, Oriented HEENT: Pupils Equal, EOMI Neck: Supple Lungs: Clear to Auscultation, Normal Respiratory Effort Cardiovascular: Regular Rate, Regular Rhythm GI/Abdominal Exam: Normal Bowel Sounds, Soft, Non-Tender, No Distention, No Mass (Female) Exam: Deferred Back Exam: Normal Inspection, Full Range of Motion Extremities: Normal Inspection, Normal Range of Motion, No Pedal Edema, Normal Capillary Refill Peripheral Pulses: 4+: Radial (L) Skin: Warm, Dry, Intact Neurological: No New Focal Deficit Psy/Mental Status: Alert, Normal Affect, Normal Mood - Patient Data Lab Results Last 24 hrs: Laboratory Results - last 24 hr 05/30/21 05/30/21 05/30/21 Range/Units 07:10 07:10 07:10 WBC 17.7 H (4.0-10.2) K/uL RBC 3.33 L (3.77-5.09) M/uL Hgb 10.1 L D (11.7-15.5) g/dL Hct 31.3 L (34.0-46.0) % MCV 94.0 (84.0-98.0) fL MCH 30.3 (28.2-33.3) pg MCHC 32.3 (31.7-36.0) g/dL RDW 13.4 (11.2-14.1) % Plt Count 161 (150-350) K/uL Neut % (Auto) 92.0 H (45.0-80.0) % Lymph % (Auto) 3.9 L (10.0-50.0) % [place] % (Auto) 4.1 (2.0-14.0) % Eos % (Auto) 0.0 (0.0-5.0) % Baso % (Auto) 0.0 (0.0-2.0) % Neut # (Auto) 16.24 H (1.40-7.00) K/uL Lymph # (Auto) 0.69 (0.50-3.50) K/uL [place] # (Auto) 0.73 (0.00-1.00) K/uL Eos # (Auto) 0.00 (0.00-0.50) K/uL Baso # (Auto) 0.00 (0.00-0.20) K/uL VBG pH 7.40 (7.31-7.41) VBG pCO2 46 (41-51) mmHG VBG pO2 201 mmHG VBG HCO3 29 H (23-28) mmol/L VBG Total CO2 29 mmol/L VBG O2 Saturation 100 % VBG Base Excess 3 ((-2)-3) mmol/L O2 Delivery Device Room air Sodium 143 (136-145) mmol/L Potassium 4.0 (3.5-5.1) mmol/L Chloride 108 H (98-107) mmol/L Carbon Dioxide 27.7 (21.0-32.0) mmol/L Anion Gap 11.3 (7-15) meq/L BUN 26 H (7-18) mg/dL Creatinine 1.01 (0.51-1.17) mg/dL Est Cr Clr Drug Dosing 36.32 mL/min Estimated GFR (MDRD) 53 mL/min Glucose 126 H (70-99) mg/dL Calcium 8.8 (8.5-10.1) mg/dL Troponin I High Sens (<=51) ng/L C-Reactive Protein 18.0 H (<=0.9) mg/dL 05/30/21 Range/Units 09:24 WBC (4.0-10.2) K/uL RBC (3.77-5.09) M/uL Hgb (11.7-15.5) g/dL Hct (34.0-46.0) % MCV (84.0-98.0) fL MCH (28.2-33.3) pg MCHC (31.7-36.0) g/dL RDW (11.2-14.1) % Plt Count (150-350) K/uL Neut % (Auto) (45.0-80.0) % Lymph % (Auto) (10.0-50.0) % [place] % (Auto) (2.0-14.0) % Eos % (Auto) (0.0-5.0) % Baso % (Auto) (0.0-2.0) % Neut # (Auto) (1.40-7.00) K/uL Lymph # (Auto) (0.50-3.50) K/uL [place] # (Auto) (0.00-1.00) K/uL Eos # (Auto) (0.00-0.50) K/uL Baso # (Auto) (0.00-0.20) K/uL VBG pH (7.31-7.41) VBG pCO2 (41-51) mmHG VBG pO2 mmHG VBG HCO3 (23-28) mmol/L VBG Total CO2 mmol/L VBG O2 Saturation % VBG Base Excess ((-2)-3) mmol/L O2 Delivery Device Sodium (136-145) mmol/L Potassium (3.5-5.1) mmol/L Chloride (98-107) mmol/L Carbon Dioxide (21.0-32.0) mmol/L Anion Gap (7-15) meq/L BUN (7-18) mg/dL Creatinine (0.51-1.17) mg/dL Est Cr Clr Drug Dosing mL/min Estimated GFR (MDRD) mL/min Glucose (70-99) mg/dL Calcium (8.5-10.1) mg/dL Troponin I High Sens 11 (<=51) ng/L C-Reactive Protein (<=0.9) mg/dL Result Diagrams: 05/30/21 07:10 05/30/21 07:10 Angel Results Last 24 hrs: Microbiology 05/29/21 09:10 Aerobic Blood Culture - Preliminary Blood - Venous - Lab Draw NO GROWTH AFTER 1 DAY Anaerobic Blood Culture - Preliminary NO GROWTH AFTER 1 DAY 05/29/21 03:55 Aerobic Blood Culture - Preliminary Blood - Venous NO GROWTH AFTER 1 DAY Anaerobic Blood Culture - Preliminary NO GROWTH AFTER 1 DAY Sepsis Event Note - Evaluation Sepsis Screening Result: No Definite Risk - Focused Exam Vital Signs: Vital Signs Temp Pulse Resp BP Pulse Ox 05/30/21 04:00 35.8 C L 85 12 94/42 L 92 L 05/30/21 00:00 36.9 C 77 20 88/34 L 93 L - Problem List Review Problem List Initiated/Reviewed/Updated: Yes - My Orders Last 24 Hours: My Active Orders 05/30/21 09:24 EKG Documentation Completion [RC] ASDIRECTED - Plan Plan:: 05/30/2021 Carvedilol was held due to continued hypotension/intermittent bradycardia. She will be kept on telemetry, monitored for tachycardia. Will continue IV fluids for now. Continue IV rocephin and oral doxycyline Repeat EKG was unchanged today. Troponin was negative. She will need a stress test once this acute COPD exacerbation improves. Assessment/plan. This patient was initially admitted observation but meets inpatient criteria. Due to the below acute and chronic diagnosis. Acute Diagnosis COPD with acute exacerbation. No home therapy FEV1/FVC ratio 0.66 Prednisone 40 mg daily, budesonide 0.5 twice daily, ipratropium 0.5 3 times daily albuterol as needed, doxycycline 100 mg p.o. twice daily. Acute hypoxic Respiratory failure. BiPAP in the emergency department. pH 7.29, PCO2 60, bicarb 29, base excess 1. Repeat couple of hours later pH 7.32, PCO2 55, bicarb 30, base excess 3. R equiring 4 L of oxygen to keep her oxygen saturation above 90%. Repeat venous blood gas in the morning, oxygen keep sats above 90%. See #1. Acute on chronic kidney failure stage IIIb. Baseline creatinine 1.1 GFR 50, admission creatinine 1.29, GFR 40. Lactated Ringer's 100 mils an hour for the acute failure also due to the recent contrast administration in the emergency department following her CTA that was negative for pulmonary emboli Recurrent urinary tract infection Positive nitrites [facility] culture pending. Typically E. coli Rocephin 1 g daily. Follow culture. Continue Hiprex Consider Urology follow up outpatient. Elevated TSH question due to acute illness Baseline 2.84, 12.5 today. Recommend follow-up in the clinic in 6 to 8 weeks as this may be due to acute infectious or inflammatory process. Solitary pulmonary nodule 6 cm. Follow-up outpatient 6 months pulmonary nodule clinic primary care to set up Hypotension in the presence of hypertension. BP 92/50, will hold lisinopril for now. Continue carvedilol monitor BP. Hopefully this will improve with some fluids. Chronic Diagnosis [place] Oxygen prn now. Chronic Systolic HF with reduced ejection fraction. 35-40% No signs of acute exacerbation at this time. Continue carvedilol. Observe closely with the lisinopril help and fluid administration. Pure hypercholesteremia Continue home Crestor Atherosclerosis heart disease of [place] coronary arteries without angina pectoris. Carvedilol 6.25 twice daily, hold lisinopril continue aspirin Generalized anxiety disorder. Xanax as needed home medication Ischemic cardiomyopathy Continue home medications as divina. Telemetry Patient will be changed to inpatient status at this time due to the above concerns. I do not feel that this patient will need any more than 2 days of hospitalization due to the above diagnosis. Unless his situation alters or new symptoms or pathology is found. VTE: Lovenox 40 mg daily. Sepsis: Blood urine cultures pending. Doxycycline Rocephin. CODE STATUS: DNR/DNI.
[2021-05-30] MEDS: cefTRIAXone 1 GM in Sodium Chloride 0.9% 100 ML IV SCH (11:18)
[2021-05-30] MEDS: Doxycycline Monohydrate 100 MG Cap PO SCH ×2 (11:19→20:42)
[2021-05-30] MEDS: Rosuvastatin 10 MG Tab PO SCH (11:19)
[2021-05-30] MEDS: predniSONE 20 MG Tab PO SCH (11:19)
[2021-05-30] MEDS: Pantoprazole 40 MG Tab.CR PO SCH (11:20)
[2021-05-30] MEDS: Sodium Chloride 0.9% 10 ML Syringe FLUSH PRN (11:21)
[2021-05-30] MEDS: Budesonide 0.5 MG/2 ML Neb Susp NEB SCH ×2 (11:21→20:41)
[2021-05-30] MEDS: Enoxaparin 40 MG/0.4 ML Syringe SUBCUT SCH (12:24)
[2021-05-30] MEDS: Albuterol 0.083% 2.5 MG/3 ML Neb Soln NEB PRN (20:39)
[2021-05-30] MEDS: Aspirin 81 MG Tab.EC PO SCH (20:42)
[2021-05-30] MEDS: Acetaminophen 325 MG Tab PO PRN (21:06)
[2021-05-31] MEDS: Ipratropium 0.02% 0.5 MG/2.5 ML Neb Soln NEB SCH ×2 (01:38→07:15)
[2021-05-31] MEDS: Lactated Ringers 1,000 ML IV SCH (01:40)
[2021-05-31] MEDS ORDERED: ALPRAZolam 0.25 MG Tab PO SCH ×2 (02:01→20:00)
[2021-05-31] MEDS: Enoxaparin 40 MG/0.4 ML Syringe SUBCUT SCH (07:15)
[2021-05-31] MEDS: Doxycycline Monohydrate 100 MG Cap PO SCH (07:15)
[2021-05-31] MEDS: Budesonide 0.5 MG/2 ML Neb Susp NEB SCH (07:15)
[2021-05-31] MEDS: Rosuvastatin 10 MG Tab PO SCH (07:15)
[2021-05-31] MEDS: Pantoprazole 40 MG Tab.CR PO SCH (07:16)
[2021-05-31] MEDS: predniSONE 20 MG Tab PO SCH (07:16)
[2021-05-31 07:52] LABS: ANION GAP 10.8 meq/L (7-15)
[2021-05-31 08:43] VITALS: BP 138/76; PULSE 75
== END 2021-05-31 10:40 | disposition home or self-care (01) | DRG 189 ==
LOC: LL.ED 02:12 → OBSVTOIN 07:17 → LL.MS 07:17 → UNDOADMOB 07:17 → INTOOBSV 07:17 → OBSVTOIN 10:27 → LL.MS 10:27 → UNDODISIN 05-31 10:40
PROVIDERS: ADMIT Physician Assistant; ATTEND Physician Assistant
DX: J96.01 Acute respiratory failure with hypoxia (principal); I13.0 Hypertensive heart and chronic kidney disease with heart failure and stage 1 through stage 4 chronic kidney disease, or unspecified chronic kidney disease; R06.00 Dyspnea, unspecified; E87.2 Acidosis; J44.1 Chronic obstructive pulmonary disease with (acute) exacerbation; N17.9 Acute kidney failure, unspecified; N39.0 Urinary tract infection, site not specified; I42.9 Cardiomyopathy, unspecified; I50.22 Chronic systolic (congestive) heart failure; J96.02 Acute respiratory failure with hypercapnia; G47.33 Obstructive sleep apnea (adult) (pediatric); Z95.0 Presence of cardiac pacemaker; I25.5 Ischemic cardiomyopathy; F41.1 Generalized anxiety disorder; Z88.1 Allergy status to other antibiotic agents; Z88.8 Allergy status to other drugs, medicaments and biological substances; Z88.2 Allergy status to sulfonamides; Z79.82 Long term (current) use of aspirin; N39.46 Mixed incontinence; M19.90 Unspecified osteoarthritis, unspecified site; M10.9 Gout, unspecified; Z79.899 Other long term (current) drug therapy; H91.90 Unspecified hearing loss, unspecified ear; Z87.891 Personal history of nicotine dependence; H54.7 Unspecified visual loss; I48.91 Unspecified atrial fibrillation; Z95.810 Presence of automatic (implantable) cardiac defibrillator; Z95.1 Presence of aortocoronary bypass graft; E78.00 Pure hypercholesterolemia, unspecified; I25.2 Old myocardial infarction; I49.1 Atrial premature depolarization; Z20.822 Contact with and (suspected) exposure to COVID-19; I49.3 Ventricular premature depolarization; G47.30 Sleep apnea, unspecified; K57.30 Diverticulosis of large intestine without perforation or abscess without bleeding; K21.9 Gastro-esophageal reflux disease without esophagitis; R15.9 Full incontinence of feces; K44.9 Diaphragmatic hernia without obstruction or gangrene; R32 Unspecified urinary incontinence; F41.9 Anxiety disorder, unspecified; F32.A Depression, unspecified; N18.32 Chronic kidney disease, stage 3b; B96.20 Unspecified Escherichia coli [E. coli] as the cause of diseases classified elsewhere; R79.89 Other specified abnormal findings of blood chemistry; R91.1 Solitary pulmonary nodule; I25.708 Atherosclerosis of coronary artery bypass graft(s), unspecified, with other forms of angina pectoris
CPT/HCPCS: 36415; 71045; 71275; 80048; 80053; 82803; 83605; 83735; 83880; 84100; 84443; 84484; 85025; 85379; 85610; 85730; 86140; 87040; 87804; 93005; 93010; 94640; 96374; 99285; 99285-25; A9270-GY; J0696; J1650; J1940; J2405; J7120; J7512; J7613-GY; Q9967; U0002

== ENCOUNTER 2021-12-22 20:56 | Emergency (ER) | payer MEDICARE, OTHER ==
[2021-12-22 22:03] LABS: ANION GAP 7.1 meq/L (7-15); CHLORIDE,CL 105 mmol/L (98-107); SODIUM,NA 142 mmol/L (136-145)
[2021-12-22 22:21] LABS: CORONAVIRUS COVID-19 NAA NEGATIVE (NEGATIVE); RESPIRATORY SYNCYTIAL VIR NAA NEGATIVE (NEGATIVE)
[2021-12-22] MEDS ORDERED: Sodium Chloride 0.9% 1,000 ML IV ONE (22:30)
[2021-12-22] MEDS ORDERED: cefTRIAXone 1 GM in Sodium Chloride 0.9% 100 ML IV ONE (22:30)
[2021-12-22] MEDS ORDERED: cefTRIAXone 250 MG Vial IVPUSH ONE (22:41)
[2021-12-23 00:33] VITALS: BP 132/66; PULSE 75
== END 2021-12-22 23:50 | disposition home or self-care (01) ==
LOC: LL.ED 20:56
DX: N39.0 Urinary tract infection, site not specified (principal); I48.91 Unspecified atrial fibrillation; I25.10 Atherosclerotic heart disease of native coronary artery without angina pectoris; E78.00 Pure hypercholesterolemia, unspecified; I13.0 Hypertensive heart and chronic kidney disease with heart failure and stage 1 through stage 4 chronic kidney disease, or unspecified chronic kidney disease; N18.9 Chronic kidney disease, unspecified; I50.9 Heart failure, unspecified; K21.9 Gastro-esophageal reflux disease without esophagitis; Z95.0 Presence of cardiac pacemaker; Z88.2 Allergy status to sulfonamides; Z88.8 Allergy status to other drugs, medicaments and biological substances; Z88.0 Allergy status to penicillin; Z87.891 Personal history of nicotine dependence; Z20.822 Contact with and (suspected) exposure to COVID-19
CPT/HCPCS: 0241U; 36415; 71046; 80053; 81001; 85025; 87086; 96374; 99284; 99285-25; J0696